=== PATIENT | male | born 1950 | race Caucasian/White ===

== ENCOUNTER 2018-03-22 21:05 | Inpatient (IN) ==
[2018-03-22] MEDS ORDERED: 0.9 % Sodium Chloride 1,000 ML IVC ONE (21:35)
--- NOTE | 2018-03-22 21:47 | Emergency Department Note ---
Disposition Clinical Impression: Hyperglycemia Hypotension Qualifiers: Hypotension type: unspecified hypotension type Qualified Code(s): I95.9 - Hypotension, unspecified Disposition: Admitted As Inpatient Condition: Fair Forms: ED Satisfaction Letter, Work/School Release Time of Disposition: 00:34 General Adult HPI - General Chief complaint: ED General Medical Stated complaint: "thinks his Bp is low" Time Seen by Provider: 03/22/18 21:28 Source: patient Mode of arrival: ambulatory Limitations: no limitations Nursing Notes Reviewed: Yes Vital Signs Reviewed: Yes - History of Present Illness HPI Narrative: 67-year-old male presented to the emergency department for possible low blood pressure. Patient is seen at the [facility]. He is on medications for diabetes as well as high blood pressure his blood pressure medications include lisinopril and amlodipine. Patient states proximally 2 weeks ago they increase his amlodipine from 5 mg to 10 mg. He does this daily. Said since then he brigido little more dizzy and no said blood pressures have been lower than normal. [facility]. He said he has had a few that were below 100 in the systolic range over the past week or so. He is worried that his medications are causing him to go to low. He has not gone to the [facility] to get this reevaluated yet. He is not having any chest pain any headaches no blurry vision he is not dizzy when he sitting. He is not having shortness of breath. Patient has no other complaints including fevers, chills, chest pain, shortness of breath, headache, blurry vision, neck pain, back pain, pain with urination, changes in bowel movements, pain or to 90 arms or legs or generalized weakness. Pain Scale: 0 - Related Data Home Medications Medication Instructions Recorded Confirmed Aspirin Enteric Coated [Aspirin EC] 81 mg PO DAILY #0 04/24/15 01/03/16 Cetirizine HCl 10 mg PO DAILY #0 04/25/15 01/03/16 Fluticasone Propionate Nasal 1 spr NS DAILY PRN #0 04/25/15 01/03/16 [Flonase] Lisinopril [Zestril] 40 mg PO DAILY #0 04/25/15 01/03/16 Pantoprazole Sodium [Protonix] 40 mg PO DAILY #0 11/03/15 07/13/16 Simvastatin [Zocor] 60 mg PO HS #0 04/25/15 01/03/16 Guaifenesin [Mucinex] 1,200 mg PO Q12H 01/03/16 01/03/16 Previous Rx's Medication Instructions Recorded Amlodipine [Norvasc] 2.5 mg PO DAILY #30 tablet 04/26/15 Allergies Allergy/AdvReac Type Severity Reaction Status Date / Time No Known Allergies Allergy Verified 01/03/16 10:30 All systems ED: reviewed and negative except as stated. Review of Systems: As Per HPI Past Medical History - Past Medical History Attestation: Yes The following information was validated with the patient. Source: patient Medical history: Reports: cancer, COPD, diabetes, hyperlipidemia, hypertension Surgical history: Reports: other Psychiatric history: Reports: no psych history - Social History Smoking Status: Current every day smoker Smokeless Tobacco Status: No Alcohol use: Reports: none Drug use: Reports: none Physical Exam - General Limitations: no limitations General appearance: alert, in no apparent distress - Head Head exam: atraumatic, normocephalic, normal inspection - Eye Eye exam: Present: normal appearance, PERRL, EOMI - ENT ENT exam: normal exam, normal oropharynx, mucous membranes moist - Neck Neck exam: Present: normal inspection, full ROM, trachea midline - Chest Chest inspection: Present: normal inspection, symmetric chest wall rise - Respiratory Respiratory exam: Present: normal lung sounds bilaterally - Cardiovascular Cardiovascular exam: Present: regular rate, normal rhythm, normal heart sounds - Abdominal Exam Abdominal exam: Present: soft, Non-Tender. Absent: tenderness, distention, guarding, rebound, rigidity - Extremities Exam Extremities exam: Present: normal inspection, full ROM. Absent: tenderness, pedal edema - Back Exam Back exam: Present: normal inspection, full ROM. Absent: tenderness, CVA tenderness (R), CVA tenderness (L) - Neurological Exam Neurological exam: Present: alert, oriented X3 - Skin Skin exam: Present: warm, dry, intact, normal color Course Course Narrative: We will do an EKG as well as basic labs including CBC and BMP will place an IV and give IV fluids. If patient's blood pressure does respond well we will discharge patient home and [facility]. Vital Signs Temperature 98.0 F 03/22/18 21:10 Pulse Rate 95 03/22/18 21:10 Respiratory Rate 18 03/22/18 21:10 Blood Pressure 106/64 03/22/18 21:10 O2 Sat by Pulse Oximetry 96 03/22/18 21:10 Temperature 98.0 F 03/22/18 21:10 Pulse Rate 83 03/22/18 23:33 Respiratory Rate 16 03/22/18 23:33 Blood Pressure 106/63 03/22/18 23:33 O2 Sat by Pulse Oximetry 96 03/22/18 23:33 Oxygen Delivery Oxygen Delivery Room Air Medical Decision Making - MDM Narrative Medical decision making narrative: 67-year-old male seen here for low blood pressure originally we are just going to give IV fluids and do a BMP and CBC. After getting the BMP patient's glucose was 888. He did have a sodium of 119 with a correction with a glucose his sodium was 131. Patient did not have an anion gap. VBG showed no acidosis patient had no beta hydroxybutyrate. We did give 10 units of insulin. His repeat blood glucose was 575. I then spoke with the hospitalist Dr. Whatley who agreed to admit the patient. He asked that I give another 10 units of insulin also give another IV IV bag bolus of fluids. Patient is stable at this time. He has no complaints at this time. Patient was not in DKA. This could be due to patient's high blood sugar causing his decrease in blood pressure but also could be due to the increase of amlodipine from 5 mg to 10 mg's. Did recommend he follow up with his primary care physician about better controlling his blood pressure. Patient is going to be admitted in stable condition. - Lab Data Result diagrams: 03/22/18 21:51 03/22/18 21:51 Lab Results 03/22/18 03/22/18 03/22/18 Range/Units 21:51 21:51 23:20 WBC 7.3 (4.3-11.1) K/mcL RBC 4.99 (4.19-5.50) M/mcL Hgb 15.4 (12.9-16.9) g/dL Hct 46.3 (37.5-50.1) % MCV 92.8 (83.0-100.0) fL MCH 30.9 (28.0-33.3) pg MCHC 33.3 (31.6-35.5) g/dL RDW 12.9 (11.5-14.5) % Plt Count 70 L (140-400) K/mcL MPV 11.7 (9.4-12.4) fL Immature Gran % 0.4 (0-4) % Seg Neutrophils % 69.4 % Lymphocytes % 21.5 % Monocytes % 7.3 % Eosinophils % 1.1 % Basophils % 0.3 % Neutrophils # 5.1 (1.6-8.9) K/mcL Lymphocytes # 1.6 (0.6-4.6) K/mcL Monocytes # 0.5 (0.0-1.3) K/mcL Eosinophils # 0.1 (0.0-0.6) K/mcL Basophils # 0.0 (0.0-0.2) K/mcL Immature Plt Fraction 9.0 H (1.1-6.1) % VBG pH (7.32-7.42) pH Units VBG pCO2 (41-51) mmHg VBG pO2 (25-50) mmHg VBG HCO3 (21-27) mEq/L Sodium 119 L* (136-145) mEq/L Potassium 5.2 H (3.5-5.1) mEq/L Chloride 90 L (98-107) mEq/L Carbon Dioxide 21 L (23-29) mEq/L BUN 36 H (8-23) mg/dL Creatinine 2.06 H (0.70-1.30) mg/dL Est GFR ( Amer) 39 L (> 60) Est GFR (Non-Af Amer) 32 L (> 60) BUN/Creatinine Ratio 17 (6-26) Glucose 883 H* (70-105) mg/dL Calculated Osmolality 300 (280-300) Calcium 9.0 (8.6-10.3) mg/dL Beta-Hydroxybutyric Acd 0.24 (0.02-0.27) mmol/L 03/22/18 Range/Units 23:35 WBC (4.3-11.1) K/mcL RBC (4.19-5.50) M/mcL Hgb (12.9-16.9) g/dL Hct (37.5-50.1) % MCV (83.0-100.0) fL MCH (28.0-33.3) pg MCHC (31.6-35.5) g/dL RDW (11.5-14.5) % Plt Count (140-400) K/mcL MPV (9.4-12.4) fL Immature Gran % (0-4) % Seg Neutrophils % % Lymphocytes % % Monocytes % % Eosinophils % % Basophils % % Neutrophils # (1.6-8.9) K/mcL Lymphocytes # (0.6-4.6) K/mcL Monocytes # (0.0-1.3) K/mcL Eosinophils # (0.0-0.6) K/mcL Basophils # (0.0-0.2) K/mcL Immature Plt Fraction (1.1-6.1) % VBG pH 7.37 (7.32-7.42) pH Units VBG pCO2 37 L (41-51) mmHg VBG pO2 135 H (25-50) mmHg VBG HCO3 21 (21-27) mEq/L Sodium (136-145) mEq/L Potassium (3.5-5.1) mEq/L Chloride (98-107) mEq/L Carbon Dioxide (23-29) mEq/L BUN (8-23) mg/dL Creatinine (0.70-1.30) mg/dL Est GFR ( Amer) (> 60) Est GFR (Non-Af Amer) (> 60) BUN/Creatinine Ratio (6-26) Glucose (70-105) mg/dL Calculated Osmolality (280-300) Calcium (8.6-10.3) mg/dL Beta-Hydroxybutyric Acd (0.02-0.27) mmol/L
[2018-03-22 22:10] LABS: Red Cell Distribution Width 12.9 % (11.5-14.5)
[2018-03-22 22:11] LABS: Hematocrit 46.3 % (37.5-50.1); Hemoglobin 15.4 g/dL (12.9-16.9); Immature Granulocytes % 0.4 % (0-4); Lymphocytes % 21.5 %; Mean Corpuscular HGB Conc 33.3 g/dL (31.6-35.5); Mean Corpuscular Hemoglobin 30.9 pg (28.0-33.3); Mean Corpuscular Volume 92.8 fL (83.0-100.0); Mean Platelet Volume 11.7 fL (9.4-12.4); Red Blood Count 4.99 M/mcL (4.19-5.50); Segmented Neutrophils % 69.4 %
[2018-03-22 22:12] LABS: Basophils % 0.3 %; Eosinophils # 0.1 K/mcL (0.0-0.6); Eosinophils % 1.1 %; Lymphocytes # 1.6 K/mcL (0.6-4.6); Monocytes # 0.5 K/mcL (0.0-1.3); Monocytes % 7.3 %; Neutrophils # 5.1 K/mcL (1.6-8.9); Platelet Count 70 K/mcL (140-400)
[2018-03-22 22:45] LABS: Potassium 5.2 mEq/L (3.5-5.1)
[2018-03-22] MEDS: Insulin Human Regular 10 UNIT in 0.9 % Sodium Chloride 10 ML IV ONE (23:11)
[2018-03-22 23:38] LABS: VBG HCO3 21 mEq/L (21-27); VBG PCO2 37 mmHg (41-51); VBG PH 7.37 pH Units (7.32-7.42); VBG PO2 135 mmHg (25-50)
[2018-03-23] MEDS ORDERED: Naloxone 0.4 MG/ML INJ IVP PRN (00:04)
[2018-03-23] MEDS ORDERED: Dextrose Gel 15 GM/37.5 ML TUBE PO PRN ×2 (00:07)
[2018-03-23] MEDS ORDERED: *HR* Dextrose 50 % in Water (Syg) 50 ML SYRINGE IVP PRN (00:07)
[2018-03-23] MEDS ORDERED: D5% in Water 1,000 ML IVC PRN (00:07)
[2018-03-23] MEDS ORDERED: Insulin Human Regular 10 UNIT in 0.9 % Sodium Chloride 10 ML IV ONE ×2 (00:08→00:29)
[2018-03-23] MEDS ORDERED: Insulin DETEMIR 100 UNIT/ML X5UNITS SQ ONE (00:08)
--- NOTE | 2018-03-23 00:16 | Internal Med History&Physical ---
<Jerry Haile - Last Filed: 03/23/18 01:13> Date of Encounter: 03/23/18 Time of Encounter: 23:40 Internal Medicine - H&P: HPI Chief complaint: Low BP Admitted From: Emergency Dept Plans for Post Hospital Care: Home History of present illness: Mr. Campbell is a 67 year old male with history of cancer, COPD, diabetes, hyperlipidemia, hypertension who presented to the ED with concern for low blood pressure. The patient apparently has been experiencing high blood pressure for the past 2 weeks for which she has been calling the [facility] to report about, however today he reported that his blood pressure was low and was told to come to the emergency room. He notes that in this time, he has been having some dizziness and he has been unstable on his feet. He says that he has been having frequent falls over the past 2 weeks as well. Additionally, he says that he has been having disorientation and some confusion. Upon questioning he notes that he has had some chills but no fevers and he has not had any sweats. He does say that he is been extremely thirsty over the past couple of weeks and that his thirst is unquenchable. He also says that he has had excessive urination and some blurred vision as well. Additionally, he does complain of nausea with some vomiting, as well as some diarrhea. He denies abdominal pain. When asked what his blood pressure today was which concerned him, he says he was unable to remember what the numbers were. Of note, the patient mentions that his amlodipine was increased from 5 mg to 10 mg proximally 2 months ago, however he has not noticed any significant changes in his symptoms and that time until 2 weeks ago. The patient does admit to a history of diabetes mellitus which was diagnosed a proximally 2 years ago, however he does not keep track of his blood glucose. He otherwise has no acute complaints at this time. The patient does state that he lives at home with his and his children. 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 Denies drug use. He is a retired . Past Med Surg Social Fam HX - Past Medical History Medical history: cancer, COPD, diabetes, hyperlipidemia, hypertension Additional medical history: skin cancer Psychiatric history: no psych history - Past Surgical History Surgical History: other Additional surgical history: foot surgery.nose surgery - Social History Smoking Status: Current every day smoker Smokeless Tobacco Status: No Alcohol use: none Drug use: none - Family History Mother Adopted: No Family Member Ethnicity: Non- Living Status: Still Living Hx Family Cardiac Disorders: No Hx Family Respiratory Disorders: No Hx Family Cancer: No Hx Family GI Disorders: No Hx Family Endocrine Disorder: Yes Hx Family Neuromuscular Disorders: No Hx Family Neurologic Disorders: No Hx Family HEENT Disorders: No Hx Family Autoimmune Disorders: No Father Hx Family Cardiac Disorders: Yes (s/p SD) Internal Medicine - H&P: Meds Aspirin Enteric Coated [Aspirin EC] 81 mg PO DAILY #0 04/24/15 [History] Cetirizine HCl 10 mg PO DAILY #0 04/25/15 [History] Fluticasone Propionate Nasal [Flonase] 1 spr NS DAILY PRN #0 04/25/15 [History] Lisinopril [Zestril] 40 mg PO DAILY #0 04/25/15 [History] Pantoprazole Sodium [Protonix] 40 mg PO DAILY #0 04/25/15 [History] Simvastatin [Zocor] 60 mg PO HS #0 04/25/15 [History] Amlodipine [Norvasc] 2.5 mg PO DAILY #30 tablet 04/26/15 [Rx] Guaifenesin [Mucinex] 1,200 mg PO Q12H 01/03/16 [History] 3 Allergy/AdvReac Type Severity Reaction Status Date / Time No Known Allergies Allergy Verified 01/03/16 10:30 All Systems PM: A 10-system review of systems was performed and is negative for pertinent findings except as documented above in the HPI. Review of systems: Constitutional: Denies fevers, weight loss, generalized fatigue. Does admit to some chills Head/Neck: Denies WIGGINS, neck stiffness EENT: Admits to some visual blurriness. Denies rhinorrhea, congestion, sore throat CVS: Denies chest pain, palpitations, ROTHMAN, orthopnea, edema, PND Pulm: Admits to cough with sputum production for one year. Denies SOB, hemoptysis, wheezing Endocrine: Patient admits to polydipsia and polyuria GI: Admits to nausea and some vomiting. Denies abdominal pain, constipation, melena, hematemasis : Admits to polyuria. Denies dysuria, urgency, hematuria Heme: Denies ease of bleeding or bruising MSK: Denies joint pain, limited ROM Skin: Denies rashes, ulcers, color changes Neuro: Denies WIGGINS, paresthesias, focal deficits - Constitutional Vitals: Temp Pulse Resp BP Pulse Ox 98.0 F 83 16 106/63 96 03/22/18 21:10 03/22/18 23:33 03/22/18 23:33 03/22/18 23:33 03/22/18 23:33 Exam: Gen: Vitals noted. No acute distress. Patient appears disheveled, has foul odor of urine and does not appear to have showered in several days HEENT: Normocephalic, atraumatic. Mucous membranes appear moist Neck: Supple. No adenopathy. Cardiac: RRR, no murmur, +S1/S2 Pulmonary: CTA bilaterally, no wheezes, rales or rhonchi, equal chest expansion Abdomen: soft, nontender, no guarding. There is minimal distention Back: Nontender throughout. Extremities: no BLE edema, nontender calf, no cyanosis or clubbing. Feet do not appear to have any breaks in the skin although they are extremely unclean. Neuro: moves all extremities, no focal deficits. A&Ox3. Akathasia is present. Hyperreflexic in lower extremities Psych: Patient is anxious appearing Internal Med - H&P Results - Labs CBC & Chem 7: 03/22/18 21:51 03/23/18 00:40 Labs: Short CBC 03/22/18 Range/Units 21:51 WBC 7.3 (4.3-11.1) K/mcL Hgb 15.4 (12.9-16.9) g/dL Hct 46.3 (37.5-50.1) % Plt Count 70 L (140-400) K/mcL Neutrophils # 5.1 (1.6-8.9) K/mcL BMP 03/22/18 21:51 Sodium 119 L* Potassium 5.2 H Chloride 90 L Carbon Dioxide 21 L BUN 36 H Creatinine 2.06 H Glucose 883 H* Calcium 9.0 - ABG Interpretation ABG results: 03/22/18 23:35 VBG pH 7.37 VBG pCO2 37 L VBG pO2 135 H VBG HCO3 21 - Assessment and plan (1) Type 2 diabetes mellitus with hyperosmolarity without nonketotic hyperglycemic-hyperosmolar coma Current Visit: Yes Status: Resolved Assessment and plan: Hyperosmolar hyperglycemic state, blood glucose 883 on presentation Patient states that he does not keep track of his blood glucose, although he does say he takes his medication His BMP demonstrates no anion gap at this time, VBG is not significant for Acidosis, there are no serum ketones Sodium 118, Potassium 5.2, Glucose 885. HR 83, BP 106/63 after fluids Symptomatic at this time, patient admits to polyuria and polydipsia, but does not appear profoundly volume depleted at this time Received 10U IV insulin in the ED with 1L fluid which dropped glucose to 575 Plan -Patient responded well to fluids and 10U IV insulin. Although he appears to be in HHS, he should improve without initiation of insulin drip at this time as he is not profoundly volume depleted. -Will give 10U IV insulin, 20U Levemir, and aggressive IV fluid replacement -Repeat BMP q4h initially q1h accucheck -Sliding scale insulin (2) Hypertension Current Visit: No Status: Acute Assessment and plan: Patient states that he was hypotensive today On arrival, BP 106/64. Does not remember home BP readings He does take multiple antihypertensive meds at this time I suspect that the hypotension is a combination of hypovolemia and supratherapeutic medication Will give the patient aggressive volume resuscitation and hold BP meds Qualifiers: Hypertension type: essential hypertension Qualified Code(s): I10 - Essential (primary) hypertension (3) KRYSTYNA (acute kidney injury) Current Visit: Yes Status: Acute Assessment and plan: Acute on chronic kidney disease stage III Serum creatinine 2.06 on presentation, it assessment a GFR 32 Likely secondary to hypovolemia, prerenal state in setting of HHS We will continue aggressive volume resuscitation at this time Avoid nephrotoxic agents Repeat BMP in a.m. (4) Frequent falls Current Visit: Yes Status: Acute Assessment and plan: Likely secondary to hypovolemia/hypotension and hyperglycemia Fall precautions (5) COPD (chronic obstructive pulmonary disease) Current Visit: Yes Status: Acute Assessment and plan: COPD per patient history Not in acute exacerbation Continue home meds Qualifiers: COPD type: unspecified COPD Qualified Code(s): J44.9 - Chronic obstructive pulmonary disease, unspecified (6) Tobacco use Current Visit: No Status: Acute Assessment and plan: Nicotine patches when necessary (7) DVT prophylaxis Current Visit: Yes Status: Acute Assessment and plan: Patient is thrombocytopenic, so I will avoid heparin We will do SCDs - Time Spent With Patient Total time spent is greater than 50% in coordination of care (as documented) at patient's floor/unit and/or counseling patient: <PhyliciaKayley - Last Filed: 03/23/18 02:50> Date of Encounter: 03/23/18 Internal Medicine - H&P: HPI History of present illness: Mr. Campbell is a 67 year old male All Systems PM: A 10-system review of systems was performed and is negative for pertinent findings except as documented above in the HPI. - Constitutional Vitals: Temp Pulse Resp BP Pulse Ox 98.2 F 84 15 90/56 95 03/23/18 01:36 03/23/18 01:36 03/23/18 01:36 03/23/18 01:36 03/23/18 01:36 Internal Med - H&P Results - Labs CBC & Chem 7: 03/22/18 21:51 03/23/18 00:40 - Assessment and plan (1) Hypertension Current Visit: No Status: Acute Qualifiers: Hypertension type: essential hypertension Qualified Code(s): I10 - Essential (primary) hypertension (2) Tobacco use Current Visit: No Status: Acute (3) Type 2 diabetes mellitus with hyperosmolarity without nonketotic hyperglycemic-hyperosmolar coma Current Visit: Yes Status: Resolved (4) KRYSTYNA (acute kidney injury) Current Visit: Yes Status: Acute (5) Frequent falls Current Visit: Yes Status: Acute (6) DVT prophylaxis Current Visit: Yes Status: Acute (7) COPD (chronic obstructive pulmonary disease) Current Visit: Yes Status: Acute Qualifiers: COPD type: unspecified COPD Qualified Code(s): J44.9 - Chronic obstructive pulmonary disease, unspecified - Time Spent With Patient Total time spent is greater than 50% in coordination of care (as documented) at patient's floor/unit and/or counseling patient: - Attending Attestation Mr. Harvey Campbell is a 67-year-old male with a history of COPD, hypertension and type 2 diabetes who presents stating that he felt his blood pressure was low as he had been checking it serially ever since he had doubling of his dosage and was incidentally found to have a glycemic value of close to 900 with concurrent pseudohyponatremia, acute kidney injury and no anion gap or ketone formations. We immediately started him on aggressive fluid resuscitation and received regular insulin push which brought his glucose level to 500 and subsequently to 400 therefore not warranting placement on insulin drip. Clinically he feels fine other than complaints of chronic lower extremity neuropathy and cramping of more recent. Physical exam remarkable for obese male who appears unkempt. No wheezing rales or rhonchi. Abdomen distended but soft and nontender to palpation. Normal S1/ S2 with no murmur, rubs or gallop. We will admit for hyperglycemic hyperosmolar state with acute kidney injury and hydrated electrolytic imbalances. Replete potassium prior to insulin administration. Ongoing IV NS. Goal glucose of 250 mg/dL or below. Every hour fingersticks until this is achieved. Start long-acting basal insulin. Hold antihypertensives in the setting of low BP. Thrombocytopenia is noted with no overt cause identified; will repeat CBC upon resolution of his acute state. Should resume diabetic diet.
[2018-03-23] MEDS ORDERED: 0.9 % Sodium Chloride 1,000 ML IVC ONE (00:29)
--- NOTE | 2018-03-23 00:49 | Emergency Department Note ---
Disposition Clinical Impression: Hyperglycemia Hypotension Qualifiers: Hypotension type: unspecified hypotension type Qualified Code(s): I95.9 - Hypotension, unspecified Disposition: Admitted As Inpatient Condition: Fair General Adult HPI - General Chief complaint: ED General Medical Stated complaint: "thinks his Bp is low" Time Seen by Provider: 03/22/18 21:28 Source: patient Mode of arrival: ambulatory Limitations: no limitations Nursing Notes Reviewed: Yes Vital Signs Reviewed: Yes - History of Present Illness Pain Scale: 0 - Related Data Home Medications Medication Instructions Recorded Confirmed Aspirin Enteric Coated [Aspirin EC] 81 mg PO DAILY #0 04/24/15 01/03/16 Cetirizine HCl 10 mg PO DAILY #0 04/25/15 01/03/16 Fluticasone Propionate Nasal 1 spr NS DAILY PRN #0 04/25/15 01/03/16 [Flonase] Lisinopril [Zestril] 40 mg PO DAILY #0 04/25/15 01/03/16 Pantoprazole Sodium [Protonix] 40 mg PO DAILY #0 04/25/15 01/03/16 Simvastatin [Zocor] 60 mg PO HS #0 04/25/15 01/03/16 Guaifenesin [Mucinex] 1,200 mg PO Q12H 01/03/16 01/03/16 Previous Rx's Medication Instructions Recorded Amlodipine [Norvasc] 2.5 mg PO DAILY #30 tablet 04/26/15 Allergies Allergy/AdvReac Type Severity Reaction Status Date / Time No Known Allergies Allergy Verified 01/03/16 10:30 Past Medical History - Past Medical History Medical history: Reports: cancer, COPD, diabetes, hyperlipidemia, hypertension Surgical history: Reports: other Psychiatric history: Reports: no psych history - Social History Smoking Status: Current every day smoker Smokeless Tobacco Status: No Alcohol use: Reports: none Drug use: Reports: none Physical Exam - General Limitations: no limitations General appearance: alert, in no apparent distress Course Vital Signs Temperature 98.0 F 03/22/18 21:10 Pulse Rate 95 03/22/18 21:10 Respiratory Rate 18 03/22/18 21:10 Blood Pressure 106/64 03/22/18 21:10 O2 Sat by Pulse Oximetry 96 03/22/18 21:10 Temperature 98.0 F 03/22/18 21:10 Pulse Rate 83 03/22/18 23:33 Respiratory Rate 16 03/22/18 23:33 Blood Pressure 106/63 03/22/18 23:33 O2 Sat by Pulse Oximetry 96 03/22/18 23:33 Oxygen Delivery Oxygen Delivery Room Air Medical Decision Making - Medical Records Medical records reviewed: Yes I reviewed the patient's medical records. - Lab Data Lab results reviewed: Yes I reviewed the patient's lab results. Result diagrams: 03/22/18 21:51 03/22/18 21:51 Lab Results 03/22/18 03/22/18 03/22/18 Range/Units 21:51 21:51 23:20 WBC 7.3 (4.3-11.1) K/mcL RBC 4.99 (4.19-5.50) M/mcL Hgb 15.4 (12.9-16.9) g/dL Hct 46.3 (37.5-50.1) % MCV 92.8 (83.0-100.0) fL MCH 30.9 (28.0-33.3) pg MCHC 33.3 (31.6-35.5) g/dL RDW 12.9 (11.5-14.5) % Plt Count 70 L (140-400) K/mcL MPV 11.7 (9.4-12.4) fL Immature Gran % 0.4 (0-4) % Seg Neutrophils % 69.4 % Lymphocytes % 21.5 % Monocytes % 7.3 % Eosinophils % 1.1 % Basophils % 0.3 % Neutrophils # 5.1 (1.6-8.9) K/mcL Lymphocytes # 1.6 (0.6-4.6) K/mcL Monocytes # 0.5 (0.0-1.3) K/mcL Eosinophils # 0.1 (0.0-0.6) K/mcL Basophils # 0.0 (0.0-0.2) K/mcL Immature Plt Fraction 9.0 H (1.1-6.1) % VBG pH (7.32-7.42) pH Units VBG pCO2 (41-51) mmHg VBG pO2 (25-50) mmHg VBG HCO3 (21-27) mEq/L Sodium 119 L* (136-145) mEq/L Potassium 5.2 H (3.5-5.1) mEq/L Chloride 90 L (98-107) mEq/L Carbon Dioxide 21 L (23-29) mEq/L BUN 36 H (8-23) mg/dL Creatinine 2.06 H (0.70-1.30) mg/dL Est GFR ( Amer) 39 L (> 60) Est GFR (Non-Af Amer) 32 L (> 60) BUN/Creatinine Ratio 17 (6-26) Glucose 883 H* (70-105) mg/dL Calculated Osmolality 300 (280-300) Calcium 9.0 (8.6-10.3) mg/dL Beta-Hydroxybutyric Acd 0.24 (0.02-0.27) mmol/L 03/22/18 Range/Units 23:35 WBC (4.3-11.1) K/mcL RBC (4.19-5.50) M/mcL Hgb (12.9-16.9) g/dL Hct (37.5-50.1) % MCV (83.0-100.0) fL MCH (28.0-33.3) pg MCHC (31.6-35.5) g/dL RDW (11.5-14.5) % Plt Count (140-400) K/mcL MPV (9.4-12.4) fL Immature Gran % (0-4) % Seg Neutrophils % % Lymphocytes % % Monocytes % % Eosinophils % % Basophils % % Neutrophils # (1.6-8.9) K/mcL Lymphocytes # (0.6-4.6) K/mcL Monocytes # (0.0-1.3) K/mcL Eosinophils # (0.0-0.6) K/mcL Basophils # (0.0-0.2) K/mcL Immature Plt Fraction (1.1-6.1) % VBG pH 7.37 (7.32-7.42) pH Units VBG pCO2 37 L (41-51) mmHg VBG pO2 135 H (25-50) mmHg VBG HCO3 21 (21-27) mEq/L Sodium (136-145) mEq/L Potassium (3.5-5.1) mEq/L Chloride (98-107) mEq/L Carbon Dioxide (23-29) mEq/L BUN (8-23) mg/dL Creatinine (0.70-1.30) mg/dL Est GFR ( Amer) (> 60) Est GFR (Non-Af Amer) (> 60) BUN/Creatinine Ratio (6-26) Glucose (70-105) mg/dL Calculated Osmolality (280-300) Calcium (8.6-10.3) mg/dL Beta-Hydroxybutyric Acd (0.02-0.27) mmol/L - EKG Data EKG #1 EKG attestation: Yes I reviewed and interpreted this EKG. EKG results narrative: EKG shows a normal sinus rhythm with ventricular rate of 85. No acute ST segment elevation or depression. No voltage in precordial leads. There is poor R wave progression suggesting a possible anterior ME of undetermined age. Critical Care Time Critical Care Time: Yes Total Critical Care Time: 40 Attestation: Critical care performed: Time is exclusive of separately billable procedures. Time includes: direct patient care, patient reassessment, coordination of patient care, interpretation of data (laboratory data, radiology data, and respiratory data), review of patient's medical records, medical consultation and documentation of patient care. Procedures included in critical care time: Procedures excluded from critical care time: Attestation Statement - Attestation Attestation: I, Babatunde Michelle MD, personally evaluated this patient and discussed their management with the resident physician. I reviewed the resident's note and agree with the documented findings, medical decision making, and plan of care. 67-year-old male presents to the emergency department with a complaint of his blood pressure running low for the past 2 weeks. He is unsure of the readings but thinks that sometimes the systolic is less than 100 and the diastolic is in the 60s. Patient does have a history of hypertension and is on lisinopril and amlodipine. He did just recently have his amlodipine dosage increased from 5 mg 2 mg a few months ago. He denies any chest pain or shortness of breath. He has been having some falls due to weakness when he gets up and walks around. He denies any injury from the falls. No syncope or loss of consciousness. He has not been ill otherwise. No fever. No vomiting or diarrhea. Patient is a heavy smoker and smokes 2 and half packs per day. He denies any history of COPD or breathing problems. On examination patient is a well-developed obese elderly male in no acute distress. He is alert and oriented 3. There is no cyanosis or diaphoresis. Breath sounds are equal bilaterally with a few faint scattered expiratory wheezes. No rales. Heart regular rate and rhythm. Abdomen soft and nontender with normal bowel sounds. One plus pedal edema bilaterally. Labs reviewed. Sodium 119. Glucose 883. Ketones negative. PH normal. No acute changes on EKG. Patient did receive IV fluids and regular insulin 10 units IV with improvement in his glucose down to the 500s. Patient was not hypotensive here in the emergency department. The hospitalist, Dr. Whatley, was consulted and accepted admission of the patient.
[2018-03-23 01:11] LABS: Potassium 4.1 mEq/L (3.5-5.1)
[2018-03-23] MEDS: Insulin Human Regular 10 UNIT in 0.9 % Sodium Chloride 10 ML IV ONE (01:51)
[2018-03-23] MEDS ORDERED: Fluticasone Propionate Nasal 50 MCG/SPRAY BOTTLE NS PRN (02:20)
[2018-03-23] MEDS: 0.9 % Sodium Chloride 1,000 ML IVC SCH ×3 (03:15→05:29)
[2018-03-23 03:56] LABS: Bilirubin,Urine Negative (Negative); Blood,Urine Negative (Negative); Clarity,Urine Clear (Clear); Color,Urine Yellow (Yellow); Glucose,Urine (UA) >=1000 mg/dL (Normal); Ketones,Urine Negative (Negative); Leukocyte Esterase,Urine Negative (Negative); Nitrite,Urine Negative (Negative); PH,Urine 5.5 pH Units (5.0-8.0); Protein,Urine Trace mg/dL (Neg-Trace); Specific Gravity,Urine > 1.030 (1.010-1.025); Urobilinogen,Urine Normal (Normal)
[2018-03-23 03:58] LABS: Bacteria,Urine None Seen per hpf (None-Few); Hyaline Casts,Urine None Seen per lpf (None-Few); RBC,Urine 0-3 per hpf (0-3); Squamous Epithelial Cell,Urine Moderate per lpf (None-Few); WBC,Urine 0-3 per hpf (0-3)
[2018-03-23] MEDS ORDERED: Insulin LISPRO 300 UNITS/3 ML VIAL SQ ONE (04:46)
[2018-03-23 05:13] LABS: Basophils % 0.5 %; Eosinophils # 0.2 K/mcL (0.0-0.6); Hemoglobin 13.4 g/dL (12.9-16.9); Immature Granulocytes % 0.6 % (0-4); Immature Platelets 8.3 % (1.1-6.1); Lymphocytes # 2.6 K/mcL (0.6-4.6); Lymphocytes % 32.6 %; Mean Corpuscular HGB Conc 33.5 g/dL (31.6-35.5); Mean Corpuscular Hemoglobin 30.7 pg (28.0-33.3); Mean Corpuscular Volume 91.7 fL (83.0-100.0); Mean Platelet Volume 10.8 fL (9.4-12.4); Monocytes # 0.7 K/mcL (0.0-1.3); Monocytes % 9.1 %; Neutrophils # 4.4 K/mcL (1.6-8.9); Red Blood Count 4.36 M/mcL (4.19-5.50); Red Cell Distribution Width 12.6 % (11.5-14.5); Segmented Neutrophils % 55.2 %
[2018-03-23 05:16] LABS: Platelet Count 63 K/mcL (140-400)
[2018-03-23 05:28] LABS: Albumin 3.2 g/dL (3.5-5.7); Albumin/Globulin Ratio 1.5 (1.1-2.2); Bilirubin,Direct 0.2 mg/dL (0.0-0.2); Bilirubin,Indirect 0.5 mg/dL (0.0-1.2); Bilirubin,Total 0.7 mg/dL (0.3-1.0); Globulin 2.2 g/dL (2.4-3.5); Total Protein 5.4 g/dL (6.4-8.9)
[2018-03-23] MEDS ORDERED: Insulin LISPRO 300 UNITS/3 ML VIAL SQ SCH ×2 (06:00→21:00)
[2018-03-23] MEDS ORDERED: *HR* Heparin 5,000 UNIT/ML VIAL SQ SCH (06:00)
[2018-03-23 06:02] LABS: Calcium 8.3 mg/dL (8.6-10.3); Potassium 3.8 mEq/L (3.5-5.1)
[2018-03-23] MEDS: Nicotine 14 MG PATCH.TD24 TD SCH (08:07)
[2018-03-23] MEDS: Aspirin Enteric Coated 81 MG Tablet PO SCH (08:08)
[2018-03-23] MEDS: Loratadine 10 MG TABLET PO SCH (08:09)
[2018-03-23] MEDS: Insulin LISPRO 300 UNITS/3 ML VIAL SQ SCH ×4 (08:16→22:26)
--- NOTE | 2018-03-23 08:49 | Internal Med Progress Note ---
<Jerry Rothman - Last Filed: 03/23/18 11:13> Hospitalist Progress Note - Encounter Date of Encounter: 03/23/18 Time of Encounter: 08:47 - Subjective Interval History: Pt seen and examined. Resting comfortably, NAD. States that his symptoms have improved since yesterday. Realizes that he need to take better control of his health, especially his diabetes. ROS: denies acute changes in vision or hearing , headaches, cp, sob, n/v/d. - Exam Vitals: Temp Pulse Resp BP Pulse Ox 98.2 F 78 18 102/65 94 03/23/18 06:55 03/23/18 06:55 03/23/18 06:55 03/23/18 06:55 03/23/18 08:13 Exam: Gen: WNWD male, NAD HEENT: Mucous membranes moist, no head or neck lymphadenopahty Neck: Supple Cardiac: RRR, no murmur, +S1/S2 Pulmonary: CTA bilaterally, no wheezes, rales or rhonchi Abdomen: soft, nontender, no guarding; normoactive bowel sounds ascultated in all 4 quadrants Extremities: no LE edema, no cyanosis or clubbing Neuro: moves all extremities, complains of decreased sensation to palpation of b/l LE Psych: normal judgment; pt appears calm - Assessment and Plan (1) Type 2 diabetes mellitus with hyperosmolarity, uncontrolled Current Visit: Yes Status: Acute Assessment and Plan: Questionably controlled diabetes. Pt does not monitor BG at home but does take his metformin regularly pt presented with BG >850 Not likely HHS due to calculated serum osmolarity WNL on admission Not likely DKA due to normal anion gap on admission Hgb A1C > 18 Treated with fluid resuscitation, 10U IV insulin, 20U Levemir on admission Continued tx with low dose SSI diabetic diet Will need tight glycemic control and diabetes education upon d/c (2) Hypertension Current Visit: No Status: Acute Assessment and Plan: Hx of htn as per pt Currently taking multiple antihypertensive medications Pt monitoring home bp daily and [facility] to [facility] Pt unable to recall any recent BP readings Holding BP medications at this time Most recent pressure 102/62 [facility] (3) Frequent falls Current Visit: Yes Status: Acute Assessment and Plan: Pt admits to frequent, unprovoked falls at home possibly due to hypovolemia 2/2 increased BG or hypotension fall precautions while admitted (4) Tobacco use Current Visit: No Status: Acute Assessment and Plan: current 2.5 ppd smoker encouraged cessation nicotine patch while inpatient (5) KRYSTYNA (acute kidney injury) Current Visit: Yes Status: Acute Assessment and Plan: Pt baseline Cr appears to be around 1.3 Cr elevated >2 on admission, currently downtrending; now 1.47 likely due to volume depletion will treat with fluid resuscitation and continue to monitor (6) COPD (chronic obstructive pulmonary disease) Current Visit: Yes Status: Acute Assessment and Plan: Pt reported hx of COPD. Not currently in acute exacerbation will continue home medications (7) DVT prophylaxis Current Visit: Yes Status: Acute Assessment and Plan: pt thrombocytopenic No heparin at this time SCDs for dvt ppx - Time Spent with Patient Total time spent is greater than 50% in coordination of care (as documented) at patient's floor/unit and/or counseling patient: Internal Medicine: Result - Labs CBC & Chem 7: 03/23/18 04:43 03/23/18 04:43 Labs: Short CBC 03/23/18 Range/Units 04:43 WBC 8.0 (4.3-11.1) K/mcL Hgb 13.4 D (12.9-16.9) g/dL Hct 40.0 (37.5-50.1) % Plt Count 63 L (140-400) K/mcL Neutrophils # 4.4 (1.6-8.9) K/mcL BMP 03/23/18 04:43 Sodium 133 L Potassium 3.8 Chloride 107 Carbon Dioxide 20 L BUN 30 H Creatinine 1.47 H Glucose 283 H Calcium 8.3 L Liver Function 03/23/18 Range/Units 04:43 Total Bilirubin 0.7 (0.3-1.0) mg/dL Direct Bilirubin 0.2 (0.0-0.2) mg/dL AST 13 (13-39) Units/L ALT 17 (7-52) Units/L Alkaline Phosphatase 50 (34-104) Units/L Albumin 3.2 L (3.5-5.7) g/dL Urine 03/23/18 Range/Units 03:48 Urine Color Yellow (Yellow) Urine Clarity Clear (Clear) Urine pH 5.5 (5.0-8.0) pH Units Ur Specific [place] > 1.030 H (1.010-1.025) Urine Protein Trace (Neg-Trace) mg/dL Urine Glucose (UA) >=1000 H (Normal) mg/dL - VTE Documentation of Mechanical Device: Intermittent pneumatic compression device Consult Discharge Plan - Plan [facility]errals: [facility] [Primary Care Provider] - <Rina Cordova - Last Filed: 03/23/18 14:21> Hospitalist Progress Note - Encounter Date of Encounter: 03/23/18 - Exam Vitals: Temp Pulse Resp BP Pulse Ox 98.4 F 80 93 98/66 93 03/23/18 11:05 03/23/18 11:05 03/23/18 11:05 03/23/18 11:05 03/23/18 11:05 - Assessment and Plan (1) Hypertension Current Visit: No Status: Acute (2) Tobacco use Current Visit: No Status: Acute (3) Type 2 diabetes mellitus with hyperosmolarity without nonketotic hyperglycemic-hyperosmolar coma Current Visit: Yes Status: Resolved (4) KRYSTYNA (acute kidney injury) Current Visit: Yes Status: Acute (5) Frequent falls Current Visit: Yes Status: Acute (6) DVT prophylaxis Current Visit: Yes Status: Acute (7) COPD (chronic obstructive pulmonary disease) Current Visit: Yes Status: Acute - Time Spent with Patient Total time spent is greater than 50% in coordination of care (as documented) at patient's floor/unit and/or counseling patient: Internal Medicine: Result - Labs CBC & Chem 7: 03/23/18 04:43 03/23/18 04:43 Labs: Short CBC 03/23/18 Range/Units 04:43 WBC 8.0 (4.3-11.1) K/mcL Hgb 13.4 D (12.9-16.9) g/dL Hct 40.0 (37.5-50.1) % Plt Count 63 L (140-400) K/mcL Neutrophils # 4.4 (1.6-8.9) K/mcL BMP 03/23/18 04:43 Sodium 133 L Potassium 3.8 Chloride 107 Carbon Dioxide 20 L BUN 30 H Creatinine 1.47 H Glucose 283 H Calcium 8.3 L Liver Function 03/23/18 Range/Units 04:43 Total Bilirubin 0.7 (0.3-1.0) mg/dL Direct Bilirubin 0.2 (0.0-0.2) mg/dL AST 13 (13-39) Units/L ALT 17 (7-52) Units/L Alkaline Phosphatase 50 (34-104) Units/L Albumin 3.2 L (3.5-5.7) g/dL Urine 03/23/18 Range/Units 03:48 Urine Color Yellow (Yellow) Urine Clarity Clear (Clear) Urine pH 5.5 (5.0-8.0) pH Units Ur Specific [place] > 1.030 H (1.010-1.025) Urine Protein Trace (Neg-Trace) mg/dL Urine Glucose (UA) >=1000 H (Normal) mg/dL - Attending Attestation I have seen and examined this pt independently. I have discussed with resident physician Dr Hallman and medical student regarding the management plan. Agree with the documentation. <Jerry Rothman - Last Filed: 03/23/18 11:13> (2) Hypertension Qualifiers: Hypertension type: essential hypertension Qualified Code(s): I10 - Essential (primary) hypertension (6) COPD (chronic obstructive pulmonary disease) Qualifiers: COPD type: unspecified COPD Qualified Code(s): J44.9 - Chronic obstructive pulmonary disease, unspecified <Rina Cordova - Last Filed: 03/23/18 14:21> (1) Hypertension Qualifiers: Hypertension type: essential hypertension Qualified Code(s): I10 - Essential (primary) hypertension (7) COPD (chronic obstructive pulmonary disease) Qualifiers: COPD type: unspecified COPD Qualified Code(s): J44.9 - Chronic obstructive pulmonary disease, unspecified
[2018-03-23 10:32] LABS: Estimated Average Glucose 476 mg/dl; Hemoglobin A1C 18.2 %
[2018-03-23] MEDS ORDERED: 0.9 % Sodium Chloride 1,000 ML IVC SCH (11:30)
[2018-03-23] MEDS ORDERED: *HR* Metformin 500 MG TABLET PO SCH (17:00)
[2018-03-23] MEDS: Acetaminophen 325 MG TABLET PO PRN (22:24)
[2018-03-24 08:30] LABS: Magnesium 1.9 mg/dL (1.6-2.6); Phosphorous 2.1 mg/dL (2.7-4.5)
[2018-03-24 08:35] LABS: Red Cell Distribution Width 13.2 % (11.5-14.5)
[2018-03-24 08:49] LABS: Basophils % 0.6 %; Eosinophils # 0.2 K/mcL (0.0-0.6); Eosinophils % 2.8 %; Hematocrit 42.8 % (37.5-50.1); Hemoglobin 14.5 g/dL (12.9-16.9); Immature Granulocytes % 0.7 % (0-4); Immature Platelets 7.8 % (1.1-6.1); Lymphocytes # 2.4 K/mcL (0.6-4.6); Lymphocytes % 35.1 %; Mean Corpuscular HGB Conc 33.9 g/dL (31.6-35.5); Mean Corpuscular Hemoglobin 31.3 pg (28.0-33.3); Mean Corpuscular Volume 92.4 fL (83.0-100.0); Mean Platelet Volume 10.9 fL (9.4-12.4); Monocytes # 0.5 K/mcL (0.0-1.3); Monocytes % 7.4 %; Neutrophils # 3.6 K/mcL (1.6-8.9); Red Blood Count 4.63 M/mcL (4.19-5.50); Segmented Neutrophils % 53.4 %
[2018-03-24 08:51] LABS: Platelet Count 69 K/mcL (140-400)
[2018-03-24] MEDS: Nicotine 14 MG PATCH.TD24 TD SCH (08:57)
[2018-03-24] MEDS: Acetaminophen 325 MG TABLET PO PRN (09:05)
[2018-03-24] MEDS: Aspirin Enteric Coated 81 MG Tablet PO SCH (09:05)
[2018-03-24] MEDS: Loratadine 10 MG TABLET PO SCH (09:06)
[2018-03-24] MEDS: Insulin LISPRO 300 UNITS/3 ML VIAL SQ SCH ×4 (09:18→22:18)
[2018-03-24] MEDS ORDERED: Gabapentin 400 MG CAPSULE PO SCH (09:45)
[2018-03-24 10:28] LABS: BUN/Creatinine Ratio 15 (6-26); Blood Urea Nitrogen 16 mg/dL (8-23); Calcium 8.7 mg/dL (8.6-10.3); Carbon Dioxide 20 mEq/L (23-29); Chloride 107 mEq/L (98-107); Glucose 412 mg/dL (70-105); Osmolality,Calculated 295 (280-300); Potassium 4.1 mEq/L (3.5-5.1); Sodium 133 mEq/L (136-145); eGFR For Non-African Americans > 60 (> 60)
--- NOTE | 2018-03-24 11:57 | Internal Med Progress Note ---
<Dolores Hallman Kain - Last Filed: 03/24/18 15:57> Hospitalist Progress Note - Encounter Date of Encounter: 03/24/18 Time of Encounter: 09:32 - Subjective Interval History: Experiencing worsening "muscle spasms" during examination. Patient was found violently shaking both upper extremities complaining of muscle spasm, which lasted less than 1 minute. Patient was communicating throughout the episode. After "spasm" resolved, he had equal strength bilaterally in the upper extremities. Moderate weakness of the left lower extremity. Decreased sensation in the left upper thigh, otherwise sensation intact. Patient denied any chest pain, lightheadedness, dizziness, or worsening of shortness of breath. No urinary incontinence during the episode. - Exam Vitals: Temp Pulse Resp BP Pulse Ox 97.8 F 97 18 131/73 97 03/24/18 10:45 03/24/18 10:45 03/24/18 10:45 03/24/18 10:45 03/24/18 10:45 Exam: Gen: Obese male, moderate distress due to "muscle spasm", increased work or breathing upon resolution or the episode HEENT: Atraumatic, normocephalic Cardiac: RRR, no murmur, +S1/S2 Pulmonary: slight crackles bilaterally in the bases Abdomen: soft, nontender, no guarding Extremities: no LE edema, no cyanosis or clubbing Neuro: Equal strength bilaterally in the upper extremities. Decreased strength of the left lower extremity when compared to the right decreased sensation in the left upper thigh, otherwise sensation intact. No facial droop or slurring of speech. Psych: Anxious. Answers questions appropriately. - Assessment and Plan (1) Severe uncontrolled diabetes mellitus Current Visit: Yes Status: Chronic Assessment and Plan: Chronic, uncontrolled. Glu 883 on admission, now in mid 200s A1c 18.2 03/23 Non-compliant on Metformin 500 QD at home Started Metformin 500 BID with moderate dose SSI, will monitor insulin needs and reassess tomorrow Patient will require close follow up as an outpatient and will likely require insulin, however do not feel patient is safe to go home on insulin at this time Consulting nutrition for diabetic diet education Patient would likely benefit from outpatient diabetes education Recommend Endocrine follow up as an outpatient (2) Upper extremity myoclonus Current Visit: Yes Status: Acute Assessment and Plan: Patient reports chronic issues with "muscle spasms" at home. Increased in frequency and severity since admission. Isolated to bilateral upper extremities. Less likely electrolyte abnormalities as possible cause. - Na 133 - K 4.1 - Mg 1.9 Patient takes Gabapentin and Flexeril at home (although Flexeril is not on med list). Possible withdrawal seizure from Gabapentin. d/t patient's risk factors (DM, HTN, Obesity, HLD), must consider atypical presentation of CVA Restarted Gabapentin Started Flexeril 5mg BID PRN Consulted Neurology, appreciate recommendations. MRI w/o contrast to r/o CVA Will continue to monitor electrolytes Will continue to monitor patient for recurrence, may consider EEG pending neuro recs. (3) Hypertension Current Visit: Yes Status: Chronic Assessment and Plan: Chronic. Has been running in low 100s/70s on this admission Will continue to hold home Amlodipine and Lisinopril Will continue to monitor closely (4) Thrombocytopenia Current Visit: Yes Status: Acute Assessment and Plan: Present on admission. No signs of active bleeding. Will continue to monitor. Recommend outpatient follow-up (5) COPD (chronic obstructive pulmonary disease) Current Visit: Yes Status: Chronic Assessment and Plan: Chronic, stable. Current 2 1/2 ppd smoker. No desire to quit at this time. (6) Acute kidney injury superimposed on CKD Current Visit: Yes Status: Acute Assessment and Plan: KRYSTYNA resolved CKD3 with a baseline of approx 1.3 Cr 2.06 on admission, 1.10 today Will continue to monitor (7) Tobacco use Current Visit: No Status: Acute Assessment and Plan: Current 2 1/2 ppd smoker Patient does not have a desire to quit at this time. Educated on health risks associated with smoking. Recommend outpatient follow up. DVT Prophylaxis: No heparin due to thrombocytopenia. b/l SCDs. - Time Spent with Patient Total time spent is greater than 50% in coordination of care (as documented) at patient's floor/unit and/or counseling patient: 25 - 35 minutes Plan of Care Discussed with: patient Internal Medicine: Result - Labs CBC & Chem 7: 03/24/18 07:42 03/24/18 09:38 Labs: Short CBC 03/24/18 Range/Units 07:42 WBC 6.8 (4.3-11.1) K/mcL Hgb 14.5 (12.9-16.9) g/dL Hct 42.8 (37.5-50.1) % Plt Count 69 L (140-400) K/mcL Neutrophils # 3.6 (1.6-8.9) K/mcL BMP 03/24/18 09:38 Sodium 133 L Potassium 4.1 Chloride 107 Carbon Dioxide 20 L BUN 16 Creatinine 1.10 Glucose 412 H Calcium 8.7 - VTE Documentation of Mechanical Device: Intermittent pneumatic compression device Consult Discharge Plan - Plan [facility]errals: [facility] [Primary Care Provider] - <Gypsy Galeana - Last Filed: 03/24/18 17:11> Hospitalist Progress Note - Encounter Date of Encounter: 03/24/18 - Exam Vitals: Temp Pulse Resp BP Pulse Ox 97.8 F 97 18 131/73 97 03/24/18 10:45 03/24/18 10:45 03/24/18 10:45 03/24/18 10:45 03/24/18 10:45 - Assessment and Plan (1) Hypertension Current Visit: Yes Status: Chronic (2) Tobacco use Current Visit: No Status: Acute (3) Type 2 diabetes mellitus with hyperosmolarity without nonketotic hyperglycemic-hyperosmolar coma Current Visit: Yes Status: Resolved (4) KRYSTYNA (acute kidney injury) Current Visit: Yes Status: Resolved (5) Frequent falls Current Visit: Yes Status: Acute (6) DVT prophylaxis Current Visit: Yes Status: Acute (7) COPD (chronic obstructive pulmonary disease) Current Visit: Yes Status: Chronic - Time Spent with Patient Total time spent is greater than 50% in coordination of care (as documented) at patient's floor/unit and/or counseling patient: Internal Medicine: Result - Labs CBC & Chem 7: 03/24/18 07:42 03/24/18 09:38 Labs: Short CBC 03/24/18 Range/Units 07:42 WBC 6.8 (4.3-11.1) K/mcL Hgb 14.5 (12.9-16.9) g/dL Hct 42.8 (37.5-50.1) % Plt Count 69 L (140-400) K/mcL Neutrophils # 3.6 (1.6-8.9) K/mcL BMP 03/24/18 09:38 Sodium 133 L Potassium 4.1 Chloride 107 Carbon Dioxide 20 L BUN 16 Creatinine 1.10 Glucose 412 H Calcium 8.7 - Attending Attestation I examined this patient and my medical decision-making was reviewed with the Resident Physician Dr Hallman. I agree with the documented findings, disposition and treatment plan as described except to the extent set forth below. Mr Campbell is here with elevated blood sugars with non compliance with home metformin and KRYSTYNA, now resolved. He was independently seen and examined. Awake, complaining of "jerking and cramping" of his arm and leg muscles, which occurs at baseline at home and requesting his home flexeril and gabapentin. RN at bedside and denies change in mentation, incontinence of bowel or bladder, seizure history. No fevers, chills, n/v, abd pain. gen- alert, awake,appears stated age eyes- pupils equal round cv- reg rate and rhythm, normal s1,s2, no murmurs appreciated lungs- ctabl, no wheezing, rhonchi or crackles abd- soft, non tender, non distended, + bs neuro- AAOx3, CN grossly intact, no focal deficits Type II Diabetes, Uncontrolled with Hyperglycemia and Hgb A1C 18-2/2 non compliance with home oral agent- with resolved KRYSTYNA with resume metformin and increase dosing to BID, given his non compliance with oral meds and never being on insulin before, he is a poor candidate for home insuin use at this time, he is agreeable to continuing metformin and attempting better adherance to regimen , cont sSI and monitor SSI requirement with starting of metformin, diabetes education, nutrition education KRYSTYNA- resolved, creat improved below baseline Frequent Falls- pt/ot rec for snf and pt agreeable at this time, fall precautions, SW consult Muscle cramps/jerking, witnessed, reports chronic, not consistent with seizure activity thus far, it is an odd presentation as it resolves with discussion with patient and no focal neuro deficits, at this time not appearing to be consistent with acute cva- electrolytes at goal, will resume home flexeril at low dose, given repetitive episodes will consult neuro and recs made for addl imaging and possible eeg HTN- low normal BPs this admit, holding home bp norvasc, lisinopril meds, cont to monitor Thrombocytopenia, present on admit, no active bleeding, mechanical vte ppx, will require outpt fu [facility] <Dolores Hallman - Last Filed: 03/24/18 15:57> (3) Hypertension Qualifiers: Hypertension type: essential hypertension Qualified Code(s): I10 - Essential (primary) hypertension (5) COPD (chronic obstructive pulmonary disease) Qualifiers: COPD type: unspecified COPD Qualified Code(s): J44.9 - Chronic obstructive pulmonary disease, unspecified <Gypsy Galeana M - Last Filed: 03/24/18 17:11> (1) Hypertension Qualifiers: Hypertension type: essential hypertension Qualified Code(s): I10 - Essential (primary) hypertension (7) COPD (chronic obstructive pulmonary disease) Qualifiers: COPD type: unspecified COPD Qualified Code(s): J44.9 - Chronic obstructive pulmonary disease, unspecified
--- NOTE | 2018-03-24 16:17 | Neurology - Consult Note ---
Date of Encounter: 03/24/18 Time of Encounter: 15:13 Assessment and Plan (1) Muscle spasm Current Visit: Yes Status: Acute As patient who has an history of multiple medical condition on polypharmacy and also was on high doses of medication at home but not taking on a regular basis especially gabapentin and muscle relaxers. Is possible that he could have of withdrawal effect from these medication especially the gabapentin could cause abnormal movements in fact it can cause even seizures that time the earlier spell he had does not sound like a typical seizure. I did not notice any significant abnormalities on his current examination. Suggest to continue on gabapentin perhaps decreased the dose and keep it around 300 mg 3 times a day. At the same time continue him on Flexeril 5 mg 3 times a day. check for any other medication that may be causing of withdrawal effect. His frequent falls unlikely due to the combination of his neuropathy as well as more mechanical than anything else he could have underlying lumbar stenosis it could get an MRI of the lumbar spine to make sure there is no critical stenosis present he would benefit from gait and balance and physical therapy History of Present Illness HPI: Mr. Campbell is a 67 year old male with history of cancer, COPD, diabetes, hyperlipidemia, hypertension who admitted with concern for low blood pressure. The patient apparently has been experiencing high blood pressure for the past 2 weeks for which she has been calling the [facility] to report about, however today he reported that his blood pressure was low and was told to come to the emergency room. He notes that in this time, he has been having some dizziness and he has been unstable on his feet. He says that he has been having frequent falls over the past 2 weeks as well. this morning pt noted to have worsening "muscle spasms" noted by primary team during during examination. Patient was found violently shaking both upper extremities complaining of muscle spasm, which lasted less than 1 minute. Patient was communicating throughout the episode. After "spasm" resolved, he had equal strength bilaterally in the upper extremities. Moderate weakness of the left lower extremity. Patient denied any chest pain, lightheadedness, dizziness, or worsening of shortness of breath. No urinary incontinence during the episode. Patient has remote history of for questionable CVA/seizure in 1972 but did not have any other further episodes. His been on multiple medication he was on high doses of gabapentin but does not take it on a regularly at the same time he was on muscle relaxer but not been taking it Past Med Surg Social Fam HX - Past Medical History Medical history: cancer, COPD, diabetes, hyperlipidemia, hypertension Additional medical history: skin cancer Psychiatric history: no psych history - Past Surgical History Surgical History: other Additional surgical history: foot surgery.nose surgery - Social History Smoking Status: Current every day smoker Smokeless Tobacco Status: No Alcohol use: none Drug use: none - Family History Mother Adopted: No Age: 90 Family Member Ethnicity: Non- Living Status: Still Living Hx Family Cardiac Disorders: No Hx Family Respiratory Disorders: No Hx Family Cancer: No Hx Family GI Disorders: No Hx Family Endocrine Disorder: Yes Hx Family Neuromuscular Disorders: No Hx Family Neurologic Disorders: No Hx Family HEENT Disorders: No Hx Family Autoimmune Disorders: No Hx Family Medical Disorders: Yes (thyroid disease) Father History Unknown: Yes Living Status: Hx Family Cardiac Disorders: Yes Medications and Allergies Aspirin Enteric Coated [Aspirin EC] 81 mg PO DAILY #0 04/24/15 [History] Cetirizine HCl 10 mg PO DAILY #0 04/25/15 [History] Lisinopril [Zestril] 40 mg PO DAILY #0 04/25/15 [History] Pantoprazole Sodium [Protonix] 40 mg PO DAILY #0 04/25/15 [History] Albuterol Sulfate [Proair Hfa] 2 puff IH Q4H PRN 03/23/18 [History] Amlodipine [Norvasc] 10 mg PO DAILY 03/23/18 [History] Atorvastatin Calcium [Lipitor] 20 mg PO QPM 03/23/18 [History] Etodolac 300 mg PO BID 03/23/18 [History] Gabapentin [Neurontin] 800 mg PO BID 03/23/18 [History] Metformin HCl [Metformin HCl ER] 500 mg PO DAILY 03/23/18 [History] 3 Allergy/AdvReac Type Severity Reaction Status Date / Time No Known Allergies Allergy Verified 01/03/16 10:30 All Systems: The remainder of the systems were reviewed and are negative Physical Examination - Vital Signs Vital Signs: Initial Vital Signs Temp Pulse Resp BP Pulse Ox 98.0 F 95 18 106/64 96 03/22/18 21:10 03/22/18 21:10 03/22/18 21:10 03/22/18 21:10 03/22/18 21:10 - Exam Exam: GENERAL: Comfortable in no acute distress HEENT: Normal LUNGS: CTA HEART: RRR, S1 S2 Audible, no murmur EXTREMITIES: No Pedal edema. DETAILED NEUROLOGICAL EXAMINATION: MENTAL STATUS: Oriented to person, place, date and situation. Memory: knows the President, Aware of recent events Recent Memory Intact Attention concentration is intact Memory span is normal Cranial Nerve Examination: CN - II: Visual Acuity, Field of Vision Normal, Fundus examination: No disk edema, Pupils- size shape reaction to light and accommodation: All normal. CN III, IV, : External ocular movements were intact, Pupils were reactive, Nodrooping of the eyelids CN V: Sensation over the face to light touch and pinprick all normal. Corneal reflexes not tested, jaw jerk normal. CN VII: No facial asymmetry, no flattening of nasolabial folds, no difficulty in closing the eyes, no loss of forehead wrinkles, no difficulty in eye-closure, frowning raising eyebrows. CNVIII: No significant hearing loss CN IX, X: Uvula centralized not deviated, Gag reflex: Not tested CN X1: Sternocleidomastoid, trapezius, normal or evidence of any weakness. CN X11: No Dysarthria, no wasting or fibrilation f tongue muscles, no deviation, tongue muscle strength normal. Motor examination: No hypertrophy, tone was normal, power grade 0-5 Upper limbs Proximal- No difficulty in lifting the arms above the head. Distal- No weakness in distal muscles On formal testing 5/5 all over Lower limbs On formal testing 5/5 all over Coordination: [id number] normal. Target pursuit normal finger tapping normal, Rapid alternating moment of wrist normal Sensory system: Superficial sensations- Touch normal. Pain- Pinprick, decrease Deep sensation normal, Joint position sense normal. Cortical sensation, Tactile discrimination, localization and extinction all normal. Deep tendon reflexes. Symmetrical bilateral,hypoactive No evidence of Babinski. No sign of meningeal irritation Gait Examination: Deferred - Constitutional General appearance: comfortable Results - Laboratory Findings CBC and BMP: 03/24/18 07:42 03/24/18 09:38 Abnormal lab findings: Abnormal lab results Plt Count 69 K/mcL (140-400) L 03/24/18 07:42 Immature Plt Fraction 7.8 % (1.1-6.1) H 03/24/18 07:42 VBG pCO2 37 mmHg (41-51) L 03/22/18 23:35 VBG pO2 135 mmHg (25-50) H 03/22/18 23:35 Sodium 133 mEq/L (136-145) L 03/24/18 09:38 Carbon Dioxide 20 mEq/L (23-29) L 03/24/18 09:38 Glucose 412 mg/dL (70-105) H 03/24/18 09:38 POC Glucose 268 mg/dL (70-99) H 03/24/18 01:07 Hemoglobin A1c 18.2 % (-5.6) H 03/23/18 00:40 Phosphorus 2.1 mg/dL (2.7-4.5) L 03/24/18 07:42 Serum Total Protein 5.4 g/dL (6.4-8.9) L 03/23/18 04:43 Albumin 3.2 g/dL (3.5-5.7) L 03/23/18 04:43 Globulin 2.2 g/dL (2.4-3.5) L 03/23/18 04:43 Ur Specific [place] > 1.030 (1.010-1.025) H 03/23/18 03:48 Urine Glucose (UA) >=1000 mg/dL (Normal) H 03/23/18 03:48 Ur Squamous Epith Cells Moderate per lpf (None-Few) H 03/23/18 03:48 Consult Discharge Plan - Plan [facility]errals: [facility] [Primary Care Provider[facility] -
[2018-03-24] MEDS: 0.9 % Sodium Chloride 1,000 ML IVC SCH ×2 (16:33→16:34)
[2018-03-24] MEDS: *HR* Metformin 500 MG TABLET PO SCH (16:48)
[2018-03-24] MEDS: Gabapentin 300 MG CAPSULE PO SCH (21:48)
[2018-03-25 07:09] LABS: Immature Granulocytes % 0.5 % (0-4); Mean Corpuscular HGB Conc 32.6 g/dL (31.6-35.5); Mean Platelet Volume 10.4 fL (9.4-12.4); Red Cell Distribution Width 13.1 % (11.5-14.5)
[2018-03-25 07:11] LABS: Basophils # 0.1 K/mcL (0.0-0.2); Basophils % 0.8 %; Eosinophils # 0.2 K/mcL (0.0-0.6); Eosinophils % 2.9 %; Hematocrit 42.9 % (37.5-50.1); Immature Platelets 5.7 % (1.1-6.1); Lymphocytes # 2.4 K/mcL (0.6-4.6); Lymphocytes % 39.4 %; Mean Corpuscular Volume 95.1 fL (83.0-100.0); Monocytes # 0.4 K/mcL (0.0-1.3); Monocytes % 7.4 %; Neutrophils # 2.9 K/mcL (1.6-8.9); Red Blood Count 4.51 M/mcL (4.19-5.50)
[2018-03-25 07:17] LABS: Platelet Count 70 K/mcL (140-400)
[2018-03-25] MEDS: Insulin LISPRO 300 UNITS/3 ML VIAL SQ SCH ×4 (08:35→21:24)
[2018-03-25] MEDS: *HR* Metformin 500 MG TABLET PO SCH (08:36)
[2018-03-25] MEDS: Aspirin Enteric Coated 81 MG Tablet PO SCH (08:36)
[2018-03-25] MEDS: Gabapentin 300 MG CAPSULE PO SCH ×3 (08:37→21:20)
[2018-03-25] MEDS: Nicotine 14 MG PATCH.TD24 TD SCH (08:37)
[2018-03-25] MEDS: Loratadine 10 MG TABLET PO SCH (08:37)
[2018-03-25] MEDS ORDERED: Isovue-370 500 ML INFUS..BTL IV ONE (09:06)
[2018-03-25 09:21] LABS: BUN/Creatinine Ratio 11 (6-26); Blood Urea Nitrogen 12 mg/dL (8-23); Calcium 8.7 mg/dL (8.6-10.3); Carbon Dioxide 22 mEq/L (23-29); Chloride 107 mEq/L (98-107); Glucose 288 mg/dL (70-105); Osmolality,Calculated 286 (280-300); Potassium 4.1 mEq/L (3.5-5.1); Sodium 133 mEq/L (136-145); eGFR For Non-African Americans > 60 (> 60)
--- NOTE | 2018-03-25 15:01 | Internal Med Progress Note ---
<Gypsy Galeana - Last Filed: 03/25/18 16:12> Hospitalist Progress Note - Encounter Date of Encounter: 03/25/18 - Exam Vitals: Temp Pulse Resp BP Pulse Ox 97.7 F 85 18 115/69 97 03/25/18 11:44 03/25/18 11:44 03/25/18 11:44 03/25/18 11:44 03/25/18 11:44 - Assessment and Plan (1) Hypertension Current Visit: Yes Status: Chronic (2) Tobacco use Current Visit: No Status: Acute (3) KRYSTYNA (acute kidney injury) Current Visit: Yes Status: Resolved (4) Frequent falls Current Visit: Yes Status: Acute (5) DVT prophylaxis Current Visit: Yes Status: Acute (6) COPD (chronic obstructive pulmonary disease) Current Visit: Yes Status: Chronic (7) Severe uncontrolled diabetes mellitus Current Visit: Yes Status: Acute (8) Upper extremity myoclonus Current Visit: Yes Status: Acute (9) Thrombocytopenia Current Visit: Yes Status: Acute (10) Tobacco use Current Visit: Yes Status: Acute - Time Spent with Patient Total time spent is greater than 50% in coordination of care (as documented) at patient's floor/unit and/or counseling patient: Internal Medicine: Result - Labs CBC & Chem 7: 03/25/18 06:52 03/25/18 08:23 Labs: Short CBC 03/25/18 Range/Units 06:52 WBC 6.0 (4.3-11.1) K/mcL Hgb 14.0 (12.9-16.9) g/dL Hct 42.9 (37.5-50.1) % Plt Count 70 L (140-400) K/mcL Neutrophils # 2.9 (1.6-8.9) K/mcL BMP 03/25/18 08:23 Sodium 133 L Potassium 4.1 Chloride 107 Carbon Dioxide 22 L BUN 12 Creatinine 1.05 Glucose 288 H Calcium 8.7 - Impressions Impressions Brain MRI 03/24/18 13:19 IMPRESSION: 1. No acute intracranial abnormality. 2. Stable senescent parenchymal volume loss with mild chronic white matter microvascular ischemic changes. D/ / Hermes Dawkins / Hermes Dawkins Interpreting Provider: Hermes Dawkins Lumbar Spine MRI 03/24/18 16:23 IMPRESSION: 1. 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 2. Mild bilateral L3 through L5 neural foraminal narrowing. 3. 4.6 cm diameter fusiform infrarenal abdominal aortic aneurysm. Follow-up imaging every 6 months and vascular surgical consultation are recommended. RECOMMENDATIONS: Managing Abdominal Aortic Aneurysms 2.6-2.9 cm: Every 5 years* 3.0-3.4 cm: Every 3 years. 3.5-3.9 cm: Every 1 year. 4.0-4.4 cm: Every 1 year. Recommend vascular consultation. 4.5-5.4 cm: Every 6 months. Recommend vascular consultation. Greater than or equal to 5.5 cm: Referral to vascular surgeon. *For abdominal aortas with maximum diameter of 2.6-2.9 cm meeting criteria for AAA (>50% of proximal normal segment). Reference: J Vasc Surg. 2008;50(4 Suppl):S2-49 D/ / Hermes Dawkins / Hermes Dawkins Interpreting Provider: Hermes Dawkins Abdomen/Pelvis CTA 03/25/18 09:45 IMPRESSION: 1. 4.4 cm infrarenal abdominal aortic aneurysm. 2. 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 RECOMMENDATION: Managing Abdominal Aortic Aneurysms 4.0-4.4 cm: Every 1 year. Recommend vascular consultation. D/ / Anderson Olivier MD / Anderson Olivier MD Interpreting Provider: Anderson Olivier MD Consult Discharge Plan - Plan [facility]errals: [facility] [Primary Care Provider] - - Attending Attestation I examined this patient and my medical decision-making was reviewed with the Resident Physician Dr Holland. I agree with the documented findings, disposition and treatment plan as described except to the extent set forth below/addl details as below. Mr Campbell is here with elevated blood sugars with non compliance with home metformin and KRYSTYNA, now resolved. He is complaining of chronic muscle jerking/ cramping movements being worked up by neuro and inconsistent with seziure activity. He has multiple falls at home with ambulatory dysfunction but is refusing ECF placement. Awake, cont movements of his arm and leg muscles intermittently without change inmentation, bowel or bladder incontinence. No fevers, chills, n/v, abd pain. Discussion had regarding AAA which he now reports he was aware of and is [facility]. He is not agreeable to stating insulin and discharging on insulin this admission He thinks it "sounds like a lot of work" and he doesn't think he could do it. Is agreeable to changing oral regimen further. gen- alert, awake,appears stated age cv- reg rate and rhythm, normal s1,s2, no murmurs appreciated lungs- ctabl, no wheezing, rhonchi or crackles, normal resp effort neuro- AAOx3, CN grossly intact, no focal deficits, strength 5/5 throughout, normal muscle tone, no fasciculations appreciated Type II Diabetes, Uncontrolled with Hyperglycemia and Hgb A1C 18-2/2 non compliance with home oral agent- had resumed metfomin, but given need for CTA to assess further AAA per vasc surg , need to now stop discussed indtail with pt and he is refusing insulin on discharge but agreable to oral med changes d/w pharmacy in detail and given A1c he is good candidate for triple therapy -- will begin glipizide and tradjenta and victoz if formulary, if not will ahve to send rxs for these on dc -cont ssi and accu checks -he also need diabetic testing supplies on dc -[facility] will need follow [facility] for further diabetes maangement on dc Frequent Falls- pt/ot rec for snf and pt agreeable Muscle cramps/jerking, witnessed, reports chronic, not consistent with seizure activity it is an odd presentation as it resolves with discussion with patient and no focal neuro deficits, neuro following, MRI head negative, flexeril and gabapentin at recommended neuro doses Degenerative changes of the Lumbar spine as confirmed on MRI L spine which was obtained by neuro for frequent falls- rec for cont flexeril and outpt painmanagement, pt/ot on dc Incidental AAA 4.6 cm noted on MRI lumbar spine- per pt was aware and [facility]- vasc surg consulted given rads recs and CTA to be obtained HTN- low normal BPs this admit, holding home bp norvasc, lisinopril meds, cont to monitor Thrombocytopenia, present on admit, no active bleeding, mechanical vte ppx, will require outpt fu on dc with [facility] Of note on admission he had hyponatremia due to hyperglycemia, correcting as appropriate with improved blood sugars <Rich Hollanda - Last Filed: 03/25/18 17:36> Hospitalist Progress Note - Encounter Date of Encounter: 03/25/18 Time of Encounter: 14:58 - Subjective Interval History: Mr. Campbell was seen at bedside this morning. His vitals were stable He stated overnight. Two days ago he had episodes of arm tremors which he noted as muscle spasm. Yesterday he was found to be violently shaking his arms yesterday and was communicating during those episodes. He had one more episode of hand tremors overnight but was not witness by anyone. He was comfortable in bed. Neurology saw him today and recommended muscle relaxant for his back pain and weakness. He denied chest pain, nausea, chest pain or urinary incontinence during these episodes. - Exam Vitals: Temp Pulse Resp BP Pulse Ox 97.7 F 85 18 115/69 97 03/25/18 11:44 03/25/18 11:44 03/25/18 11:44 03/25/18 11:44 03/25/18 11:44 Exam: Gen: Obese male, comfortable in bed, awake, alert and oriented HEENT: Atraumatic, normocephalic Cardiac: RRR, no murmur, +S1/S2, no edema Pulmonary: mild crackles at right upper lung lobes Abdomen: soft, nontender, no guarding Extremities: no LE edema, no cyanosis or clubbing Neuro: Equal strength bilaterally in the upper extremities. Sensation and strength were noted to be intact in bilateral lower extremities. No facial droop or slurring of speech. Psych: Anxious. Answers questions appropriately. - Assessment and Plan (1) Severe uncontrolled diabetes mellitus Current Visit: Yes Status: Acute Assessment and Plan: Chronic, uncontrolled. Glu 883 on admission, now in mid 200s, 245 today. A1c 18.2 03/23 Non-compliant on Metformin 500 QD at home Started Metformin 500 BID with moderate dose SSI, will monitor insulin needs and reassess tomorrow If he is going to be discharged home he does not feel safe to start insulin, but would benefit given his uncontrolled diabetes Consulting nutrition for diabetic diet education Patient would likely benefit from outpatient diabetes education Recommend Endocrine follow up as an outpatient Needs close follow up outpatient (2) Abdominal aortic aneurysm Current Visit: Yes Status: Acute Assessment and Plan: Noted on MRI lumbar and CT of the abdomen and pelvis. CTA reading: Moderate atherosclerosis involves the abdominal aorta and bilateral common iliac arteries. The previously noted infrarenal abdominal aortic aneurysm has slightly increased measuring 4.4 x 4.7 cm, previously measuring 4.1 x 4.2 cm. In addition, there is unchanged aneurysmal dilatation of the distal left common iliac artery measuring 1.8 cm Plan: Consulted vascular surgery, appreciate recommendations They recommended CTA which has been completed Counseled on smoking cessation but he is not interested (3) Hypertension Current Visit: Yes Status: Chronic Assessment and Plan: Chronic. Stable since this admission Plan: Will continue to hold home Amlodipine and Lisinopril Will continue to monitor closely (4) Tobacco use Current Visit: No Status: Acute Assessment and Plan: Current 2 /2 ppd smoker Patient does not have a desire to quit at this time Plan:. Educated on health risks associated with smoking. Informed him the risk of continuing to smoke as it is linked to abdominal aortic aneurysm which he has. Recommend outpatient follow up. (5) Upper extremity myoclonus Current Visit: Yes Status: Acute Assessment and Plan: Patient reports chronic issues with "muscle spasms" at home. Increased in frequency and severity since admission. Isolated to bilateral upper extremities. Less likely electrolyte cause as sodium at the onset of presenattion was 133, potassium at 4.1 and magnesium was 1.9. Patient takes Gabapentin and Flexeril at home (although Flexeril is not on med list). Possible due to withdrawl from Gabapentin. Due to given his risk factors (DM, HTN, Obesity, HLD), atypical stroke was ruled out. Plan: Continue Gabapentin Consulted Neurology Neurology recommended muscle relaxant, continue Flexeril 5mg BID PRN MRI of the brain did not show any causation MRI of the lumbar showed abdominal aortic aneursym and degenerative changes Will continue to monitor electrolytes Will continue to monitor patient for recurrence (6) COPD (chronic obstructive pulmonary disease) Current Visit: No Status: Chronic Assessment and Plan: COPD per patient history. Not in acute exacerbation. Continue home meds (7) Thrombocytopenia Current Visit: Yes Status: Acute Assessment and Plan: Present on admission. No signs of active bleeding. No purpura noted. No sign of active infection. Plan: Will continue to monitor. Recommend outpatient follow-up (8) Tobacco use Current Visit: Yes Status: Chronic Assessment and Plan: Current 2 1/2 ppd smoker. Patient does not have a desire to quit at this time. Plan: Educated on health risks associated with smoking Discussed with him that one risk factor for abdominal aortic aneurysm is high blood pressure and smoking. Recommend outpatient follow up (9) Acute kidney injury superimposed on CKD Current Visit: Yes Status: Resolved Assessment and Plan: CKD3 with a baseline of approx 1.3 Cr 2.06 on admission, 1.05 today Plan: Avoid nephrotoxins Will continue to monitor (10) DVT prophylaxis Current Visit: Yes Status: Acute Assessment and Plan: Patient is thrombocytopenic, so avoiding heparin. Continue scds. - Time Spent with Patient Total time spent is greater than 50% in coordination of care (as documented) at patient's floor/unit and/or counseling patient: 25 - 35 minutes Plan of Care Discussed with: patient Internal Medicine: Result - Labs CBC & Chem 7: 03/25/18 06:52 03/25/18 08:23 Labs: Short CBC 03/25/18 Range/Units 06:52 WBC 6.0 (4.3-11.1) K/mcL Hgb 14.0 (12.9-16.9) g/dL Hct 42.9 (37.5-50.1) % Plt Count 70 L (140-400) K/mcL Neutrophils # 2.9 (1.6-8.9) K/mcL BMP 03/25/18 08:23 Sodium 133 L Potassium 4.1 Chloride 107 Carbon Dioxide 22 L BUN 12 Creatinine 1.05 Glucose 288 H Calcium 8.7 - Impressions Impressions Brain MRI 03/24/18 13:19 IMPRESSION: 1. No acute intracranial abnormality. 2. Stable senescent parenchymal volume loss with mild chronic white matter microvascular ischemic changes. D/ / Hermes Dawkins / Hermes Dawkins Interpreting Provider: Hermes Dawkins Lumbar Spine MRI 03/24/18 16:23 IMPRESSION: 1. 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 2. Mild bilateral L3 through L5 neural foraminal narrowing. 3. 4.6 cm diameter fusiform infrarenal abdominal aortic aneurysm. Follow-up imaging every 6 months and vascular surgical consultation are recommended. RECOMMENDATIONS: Managing Abdominal Aortic Aneurysms 2.6-2.9 cm: Every 5 years* 3.0-3.4 cm: Every 3 years. 3.5-3.9 cm: Every 1 year. 4.0-4.4 cm: Every 1 year. Recommend vascular consultation. 4.5-5.4 cm: Every 6 months. Recommend vascular consultation. Greater than or equal to 5.5 cm: Referral to vascular surgeon. *For abdominal aortas with maximum diameter of 2.6-2.9 cm meeting criteria for AAA (>50% of proximal normal segment). Reference: J Vasc Surg. 2009 Mar;50(4 Suppl):S2-49 D/ / Hermes Dawkins / Hermes Dawkins Interpreting Provider: Hermes Dawkins Abdomen/Pelvis CTA 03/25/18 09:45 IMPRESSION: 1. 4.4 cm infrarenal abdominal aortic aneurysm. 2. 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 RECOMMENDATION: Managing Abdominal Aortic Aneurysms 4.0-4.4 cm: Every 1 year. Recommend vascular consultation. D/ / Anderson Olivier MD / Anderson Olivier MD Interpreting Provider: Anderson Olivier MD - VTE Documentation of Mechanical Device: Intermittent pneumatic compression device <Gypsy Galeana - Last Filed: 03/25/18 16:12> (1) Hypertension Qualifiers: Hypertension type: essential hypertension Qualified Code(s): I10 - Essential (primary) hypertension (6) COPD (chronic obstructive pulmonary disease) Qualifiers: COPD type: unspecified COPD Qualified Code(s): J44.9 - Chronic obstructive pulmonary disease, unspecified <Skyler,Shavon - Last Filed: 03/25/18 17:36> (2) Abdominal aortic aneurysm Qualifiers: Presence of rupture: without rupture Qualified Code(s): I71.4 - Abdominal aortic aneurysm, without rupture (3) Hypertension Qualifiers: Hypertension type: essential hypertension Qualified Code(s): I10 - Essential (primary) hypertension (6) COPD (chronic obstructive pulmonary disease) Qualifiers: COPD type: unspecified COPD Qualified Code(s): J44.9 - Chronic obstructive pulmonary disease, unspecified
--- NOTE | 2018-03-25 15:43 | Neurology Progress Note ---
Date of Encounter: 03/25/18 Time of Encounter: 08:30 Assessment and Plan (1) Muscle spasm Current Visit: Yes Status: Acute No evidence of any seizure or any stroke on MRI of the brain suggests continue on muscle relaxer no indication for any antiepileptics as really doubt that these are seizures. Significant degenerative changes of the lumbar spine noted continue on gabapentin muscle relaxers follow-up with pain management as an outpatient His difficulty with a gait and balance likely due to his back issues would benefit from short-term rehabilitation sTable from neurology standpoint Subjective Interval history: In seen as an follow-up he denies any other new symptoms no further episodes of jerking of the arms he did have some spasms of his back and leg muscles currently he is on muscle relaxers. MRI of the brain did not show any acute abnormality. MRI of the lumbar spine did shows evidence of multilevel degenerative changes throughout his whole spine but no critical stenosis reported Objective - Constitutional Vitals: Temp Pulse Resp BP Pulse Ox 97.7 F 85 18 115/69 97 03/25/18 11:44 03/25/18 11:44 03/25/18 11:44 03/25/18 11:44 03/25/18 11:44 - VTE Documentation of Mechanical Device: Intermittent pneumatic compression device Results - Laboratory Findings CBC and BMP: 03/25/18 06:52 03/25/18 08:23 Abnormal lab findings: Abnormal lab results Plt Count 70 K/mcL (140-400) L 03/25/18 06:52 VBG pCO2 37 mmHg (41-51) L 03/22/18 23:35 VBG pO2 135 mmHg (25-50) H 03/22/18 23:35 Sodium 133 mEq/L (136-145) L 03/25/18 08:23 Carbon Dioxide 22 mEq/L (23-29) L 03/25/18 08:23 Glucose 288 mg/dL (70-105) H 03/25/18 08:23 POC Glucose 245 mg/dL (70-99) H 03/25/18 11:43 Hemoglobin A1c 18.2 % (-5.6) H 03/23/18 00:40 Phosphorus 2.1 mg/dL (2.7-4.5) L 03/24/18 07:42 Serum Total Protein 5.4 g/dL (6.4-8.9) L 03/23/18 04:43 Albumin 3.2 g/dL (3.5-5.7) L 03/23/18 04:43 Globulin 2.2 g/dL (2.4-3.5) L 03/23/18 04:43 Vitamin B12 230 pg/mL (250-1100) L 03/24/18 16:30 Ur Specific [place] > 1.030 (1.010-1.025) H 03/23/18 03:48 Urine Glucose (UA) >=1000 mg/dL (Normal) H 03/23/18 03:48 Ur Squamous Epith Cells Moderate per lpf (None-Few) H 03/23/18 03:48 - Diagnostic Findings Additional findings: MRI of the lumbar spine showed 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 2. Mild bilateral L3 through L5 neural foraminal narrowing. 3. 4.6 cm diameter fusiform infrarenal abdominal aortic aneurysm. seem to be incidental finding further workup as per primary team Consult Discharge Plan - Plan [facility]errals: [facility] [Primary Care Provider] -
[2018-03-25] MEDS: *HR* GlipiZIDE 5 MG TABLET PO SCH (16:53)
--- NOTE | 2018-03-25 18:27 | Vascular/Endovasc Consult Note ---
Date of Encounter: 03/25/18 Time of Encounter: 17:30 Assessment and Plan (1) Severe uncontrolled diabetes mellitus Current Visit: Yes Status: Acute Severe diabetes under active management at this time. (2) Tobacco use Current Visit: Yes Status: Chronic Patient has a chronic history of tobacco abuse. (3) Abdominal aortic aneurysm Current Visit: Yes Status: Chronic On further rushing the patient demonstrates that his aneurysm was detected about 2 years ago and is being followed every 6 months by ultrasound [facility] the [facility]. I discussed with him the natural history of abdominal aortic aneurysms. I stressed the need for controlling risk factors previously hypertension and COPD. I've asked him to contact family members to inform them of his aneurysm so that they will be screened for occult aneurysms as well. The patient was invited to follow-up through the [facility] vascular surgery clinic every 6 months or to follow up with the [facility] every 6 months with outpatient abdominal ultrasounds. All questions were answered. Patient expresses understanding of the issues. Qualifiers: Presence of rupture: without rupture Qualified Code(s): I71.4 - Abdominal aortic aneurysm, without rupture - History of Present Illness Consult date: 03/25/18 Consult reason: Abdominal aortic aneurysm Chief complaint: Dizziness and instability with falls History of present illness: Mr. Campbell is a 67 year old male Was admitted a few days ago for multiple symptoms. These included concern about low blood pressure and dizziness and instability as well as frequent falls and spasms of his extremities. On initial evaluation however he was found to have a blood sugar of greater than 800 with marked hyponatremia of less than 120. Therefore he was admitted for further evaluation and treatment. Because of spasms and history of falls and MRI of his spine was performed. This demonstrated a 4.4 cm abdominal aortic aneurysm. Vascular surgery was then asked to see the patient because of this. The patient is a very imprecise historian but after multiple questions and discussion I was able to ascertain that he was told he had an aneurysm about 2 years ago. He states that he is receiving ultras[facility] the [facility] every 6 months. He does not know the size of the aneurysm measured by ultrasound area he denies any abdominal or back pain that would be consistent with the aneurysmal process. I've requested a CT angiogram of the abdomen and pelvis. I personally reviewed these images. They demonstrated a 4.2 cm distal infrarenal abdominal aortic aneurysm. There is no sign of hematoma or bleeding. There is no retroperitoneal edema. The patient denies any family history of abdominal aortic aneurysms. Patient has multiple ongoing risk factors for vascular disease that include diabetes, COPD, hypercholesterolemia, hypertension, and long-standing tobacco abuse. Past Med Surg Social Fam HX - Past Medical History Medical history: cancer, COPD, diabetes, hyperlipidemia, hypertension Additional medical history: skin cancer Psychiatric history: no psych history - Past Surgical History Surgical History: other Additional surgical history: foot surgery.nose surgery - Social History Smoking Status: Current every day smoker Smokeless Tobacco Status: No Alcohol use: none Drug use: none - Family History Mother Adopted: No Age: 90 Family Member Ethnicity: Non- Living Status: Still Living Hx Family Cardiac Disorders: No Hx Family Respiratory Disorders: No Hx Family Cancer: No Hx Family GI Disorders: No Hx Family Endocrine Disorder: Yes Hx Family Neuromuscular Disorders: No Hx Family Neurologic Disorders: No Hx Family HEENT Disorders: No Hx Family Autoimmune Disorders: No Hx Family Medical Disorders: Yes (thyroid disease) Father History Unknown: Yes Living Status: Hx Family Cardiac Disorders: Yes Medications and Allergies Aspirin Enteric Coated [Aspirin EC] 81 mg PO DAILY #0 04/24/15 [History] Cetirizine HCl 10 mg PO DAILY #0 04/25/15 [History] Lisinopril [Zestril] 40 mg PO DAILY #0 04/25/15 [History] Pantoprazole Sodium [Protonix] 40 mg PO DAILY #0 04/25/15 [History] Albuterol Sulfate [Proair Hfa] 2 puff IH Q4H PRN 03/23/18 [History] Amlodipine [Norvasc] 10 mg PO DAILY 03/23/18 [History] Atorvastatin Calcium [Lipitor] 20 mg PO QPM 03/23/18 [History] Etodolac 300 mg PO BID 03/23/18 [History] Gabapentin [Neurontin] 800 mg PO BID 03/23/18 [History] Metformin HCl [Metformin HCl ER] 500 mg PO DAILY 03/23/18 [History] 3 Allergy/AdvReac Type Severity Reaction Status Date / Time No Known Allergies Allergy Verified 01/03/16 10:30 All Systems Review: The remainder of the systems were reviewed and are negative Exam Vital Signs, Last 4 Hours Temp Pulse Resp BP Pulse Ox 03/25/18 16:15 97.8 F 99 18 114/66 97 General: Present: Conversant, No Apparent Distress, Well developed, Well nourished, Other (Obese elderly male) HEENT: Present: Atraumatic, Normocephaly, Trachea midline, Pupils equal Neck: Absent: JVD, Lymphadenopathy, Left Carotid bruit, Right Carotid bruit, Midline deformity, Tracheal deviation Cardiac: Present: Reg Rate and Rhythm, Normal S1 and S2, No Murmur. Absent: Irregular Rhythm Lungs: Present: Normal Breath Sounds, No Wheeze, Rales, Rhonchi Neuro: Present: Alert and responsive, No focal deficits noted, Cranial nerves grossly intact, Motor nerves grossly intact, Sensory nerves grossly intact Abdomen: Present: Soft, Non-tender, Other (Obese abdomen. No abdominal bruits. No palpable pulsatile masses. No ecchymosis in the per umbilical or flank region area). Absent: Masses Vascular: Present: Normal capillary refill, Pulse, normal, Color/Temperature ( Feet are warm and pink). Absent: Bruit, Clubbing, Cyanosis, Amputation(s) Skin: Present: No rashes noted on visualized skin Consult Discharge Plan - Plan Referrals: [facility] [Primary Care Provider] -
[2018-03-26 04:54] LABS: Basophils % 0.8 %; Immature Granulocytes % 0.4 % (0-4); Mean Corpuscular HGB Conc 32.7 g/dL (31.6-35.5); Monocytes % 8.6 %; Red Cell Distribution Width 13.1 % (11.5-14.5)
[2018-03-26 04:56] LABS: Eosinophils # 0.2 K/mcL (0.0-0.6); Eosinophils % 3.4 %; Hematocrit 41.3 % (37.5-50.1); Hemoglobin 13.5 g/dL (12.9-16.9); Lymphocytes # 1.9 K/mcL (0.6-4.6); Lymphocytes % 38.8 %; Mean Corpuscular Volume 94.9 fL (83.0-100.0); Mean Platelet Volume 10.5 fL (9.4-12.4); Monocytes # 0.4 K/mcL (0.0-1.3); Neutrophils # 2.4 K/mcL (1.6-8.9); Red Blood Count 4.35 M/mcL (4.19-5.50)
[2018-03-26 05:13] LABS: Platelet Count 74 K/mcL (140-400)
[2018-03-26 05:15] LABS: BUN/Creatinine Ratio 13 (6-26); Blood Urea Nitrogen 13 mg/dL (8-23); Calcium 8.5 mg/dL (8.6-10.3); Carbon Dioxide 22 mEq/L (23-29); Chloride 107 mEq/L (98-107); Glucose 194 mg/dL (70-105); Osmolality,Calculated 285 (280-300); Potassium 4.1 mEq/L (3.5-5.1); Sodium 135 mEq/L (136-145); eGFR For Non-African Americans > 60 (> 60)
--- NOTE | 2018-03-26 09:36 | Electrocardiograph Report ---
[place] [id number] Test Date: 2018-03-22 Pat Name: Harvey Campbell Department: EXAM2 Room: 2A Gender: M Animal Care Giver: : 1950 Requested By: Dannie Campbell Order Number: [id number] Reading MD: Warner Ellis Measurements Intervals [place] Rate: 85 P: 66 PA: 191 QRS: -58 QRSD: 97 T: 42 QT: 352 QTc: 419 Interpretive Statements Sinus rhythm Left anterior fascicular block Low voltage, precordial leads Consider anterior infarct Electronically Signed On 03-26-2018 9:34:14 EDT by Warner Ellis
[2018-03-26] MEDS: Insulin LISPRO 300 UNITS/3 ML VIAL SQ SCH ×2 (09:41→11:59)
[2018-03-26] MEDS: Aspirin Enteric Coated 81 MG Tablet PO SCH (09:43)
[2018-03-26] MEDS: Nicotine 14 MG PATCH.TD24 TD SCH (09:43)
[2018-03-26] MEDS: Loratadine 10 MG TABLET PO SCH (09:43)
[2018-03-26] MEDS: Gabapentin 300 MG CAPSULE PO SCH ×2 (09:43→16:00)
[2018-03-26] MEDS: *HR* GlipiZIDE 5 MG TABLET PO SCH (09:43)
[2018-03-26 11:13] VITALS: BP 109/72
--- NOTE | 2018-03-26 13:55 | Discharge Summary ---
<Gypsy Galeana - Last Filed: 03/26/18 16:07> Date of Encounter: 03/26/18 - Discharge Diagnosis (1) Hypertension Status: Chronic Qualifiers: Hypertension type: essential hypertension Qualified Code(s): I10 - Essential (primary) hypertension (2) Tobacco use Status: Acute (3) KRYSTYNA (acute kidney injury) Status: Deleted (4) Frequent falls Status: Deleted (5) DVT prophylaxis Status: Acute (6) COPD (chronic obstructive pulmonary disease) Status: Chronic Qualifiers: COPD type: unspecified COPD Qualified Code(s): J44.9 - Chronic obstructive pulmonary disease, unspecified (7) Severe uncontrolled diabetes mellitus Status: Acute (8) Upper extremity myoclonus Status: Acute (9) Thrombocytopenia Status: Acute (10) Tobacco use Status: Chronic Hospital course: Mr. Campbell is a 67 year old male - Time Spent with Patient Total time spent providing and/or coordinating discharge services: - Discharge Medications Prescriptions: Canagliflozin [Invokana] 100 mg PO DAILY #30 tablet Cyclobenzaprine [Flexeril] 5 mg PO TID #21 tablet Gabapentin [Neurontin] 300 mg PO TID #21 capsule Linagliptin [Tradjenta] 5 mg PO DAILY #30 tablet Home Medications: Aspirin Enteric Coated [Aspirin EC] 81 mg PO DAILY #0 04/24/15 [History] Cetirizine HCl 10 mg PO DAILY #0 04/25/15 [History] Pantoprazole Sodium [Protonix] 40 mg PO DAILY #0 04/25/15 [History] Albuterol Sulfate [Proair Hfa] 2 puff IH Q4H PRN 03/23/18 [History] Atorvastatin Calcium [Lipitor] 20 mg PO QPM 03/23/18 [History] Etodolac 300 mg PO BID 03/23/18 [History] Canagliflozin [Invokana] 100 mg PO DAILY #30 tablet 03/26/18 [Rx] Cyclobenzaprine [Flexeril] 5 mg PO TID #21 tablet 03/26/18 [Rx] Fluticasone Propionate Nasal [Flonase] 50 mcg NS DAILY PRN bottle 03/26/18 [Rx] Gabapentin [Neurontin] 300 mg PO TID #21 capsule 03/26/18 [Rx] GuaiFENesin ER [Mucinex] 1,200 mg PO Q12H tbbp.12hr 03/26/18 [Rx] Linagliptin [Tradjenta] 5 mg PO DAILY #30 tablet 03/26/18 [Rx] glipiZIDE [Glucotrol] 2.5 mg PO BIDWM tablet 03/26/18 [Rx] Allergies/Adverse Reactions: 3 Allergy/AdvReac Type Severity Reaction Status Date / Time No Known Allergies Allergy Verified 01/03/16 10:30 Date of admission: 03/23/18 00:49 Primary care physician: [facility] Consults: 03/23/18 02:40 PT [Consult to Physical Therapy] [CONS] Routine Comment: Evaluate, develop and implement POC Reason for Consult: Frequent falls, evaluate for balance Does patient have active BEDREST order?: No Is patient medically & hemodynamically stable?: Yes 03/23/18 08:28 Consult to Occupational Therapy [CONS] Routine Comment: Evaluate, develop and implement POC Reason for Consult: has had several falls in past couple weeks Does patient have active BEDREST order?: No Is patient medically & hemodynamically stable?: Yes Patient assessed for mobility or mobilized this visit?: No 03/24/18 09:33 Consult to [employer] [CONS] Routine Reason for SW Consult: pt needs ecf per therapy 03/24/18 11:37 Consult to Neurology [CONS] Routine Consulting Provider: [facility] Reason for Consult: History of muscle spasms on gabapentin and flexeril at home, but patient reporting loss of bladder incontinence. Multiple "muscle spasm" episodes overnight, increasing in frequency. Patient maintains consiousness during episodes. No history of seizure disorder. Call Completed: Yes 03/25/18 11:00 Consult to Vascular Surgery [CONS] Routine Consulting Provider: [facility] [place] Reason for Consult: abdominal aortic aneurysm Call Completed: Yes - Constitutional Vitals: Temp Pulse Resp BP Pulse Ox 97.7 F 70 17 109/72 96 03/26/18 11:11 03/26/18 11:11 03/26/18 11:11 03/26/18 11:11 03/26/18 11:11 - Patient Status Disposition: Home, Self-Care Condition: Good Overall status at discharge: patient is progressing back to baseline - Discharge Instructions Instructions: Linagliptin (By mouth), Canagliflozin (By mouth), Diabetic Hyperglycemia (DC) Follow Up With: JCARLOS,PCP [Primary Care Provider] - 04/02/18 11:15 am (Please follow up as schedule...) - Attending Attestation I examined this patient and my medical decision-making was reviewed with the Resident Physician Dr Reyes. I agree with the documented findings, disposition and treatment plan as described except to the extent set forth below/addl details as below. Mr Campbell is here with elevated blood sugars with non compliance with home metformin and KRYSTYNA, now resolved. He complained of chronic muscle jerking/ cramping movements was worked up by neuro and inconsistent with seziure activity , most likely related to med w/d (gabapentin). He has multiple falls at home with ambulatory dysfunction but is refusing ECF placement. He was started on new oral diabetes regimen as he refused insulin treatment. He is being dc to home with home health for PT/OT and close outpt [facility] follow up with pcp, endocrinology, pain management. Awake, feeling very well. No muscle jerks. No abd pain, nausea or emesis. Happy to dc to home today. gen- alert, awake,appears stated age, nad cv- reg rate and rhythm, normal s1,s2, no murmurs appreciated lungs- ctabl, no wheezing, rhonchi or crackles, normal resp effort on room air neuro- AAOx3, CN grossly intact, no focal deficits Type II Diabetes, Uncontrolled with Hyperglycemia and Hgb A1C 18-2/2 non compliance with home oral agent- now improved Pt a1c was 18 on admit with inermittent compliance with metformin, discussed in detail with pt the ideaof starting insulin for his diabetes and he refused insulin on discharge but agreeable to oral med changes d/w pharmacy in detail and given A1c he is good candidate for triple therapy -- we began glipizide and recommend tradjenta and invokana (not victoza as documented in error yesterday) but are not formulary here, willdc home with rxs for them -cont accu checks at home as counselled on and rxs for testing supplies provided -he is [facility] with [facility] will need follow up there for further diabetes management on dc Frequent Falls- pt/ot rec for snf and pt refused, agreeable to home pt/ot which is arranged Muscle cramps/jerking, witnessed, reports chronic, not consistent with seizure activity -neuro followed, MRI head negative, flexeril and gabapentin at recommended neuro doses as suspect was related to withdrawal from withholding gabapentin and rec made to change dosing to TID from home dose, which was done this admission with good effect Degenerative changes of the Lumbar spine as confirmed on MRI L spine which was obtained by neuro for frequent falls- rec for cont flexeril and outpt pain management, pt/ot on dc Incidental AAA 4.6 cm noted on MRI lumbar spine- per pt was aware and [facility] monitoring q 6 months- vasc surg consulted given rads recs and reviewed CTA, outpt fu HTN- low normal BPs this admit, held home bp norvasc, lisinopril on admit due to hypotension and bps remained low normotensive without them, dc with outpt fu and re initiation, lili of acei as bp permits outpt Thrombocytopenia, present on admit, no active bleeding stable this admit, will require outpt fu on dc with PCP [facility] dc to home <Dolores Hallman - Last Filed: 03/26/18 17:33> - NOTES TO OUTPATIENT PROVIDER Notes to Outpatient Provider: Patient needs close outpatient follow [facility] with [facility] for diabetes management with possible referral to endocrine, muscle cramps on Gabapentin and Flexeril, thrombocytopenia, and AAA needing follow-up imaging in 6 months. Patient refusing insulin at this time and is being sent home on triple therapy. PT/OT through the [facility] as an outpatient for frequent falls and degenerative changes of the spine. Recommend pain managemant follow- up as well. Date of Encounter: 03/26/18 Time of Encounter: 09:47 - Discharge Diagnosis (1) Severe uncontrolled diabetes mellitus Priority: Primary Status: Chronic (2) Upper extremity myoclonus Priority: Primary Status: Acute (3) Hypertension Priority: Secondary Status: Chronic Qualifiers: Hypertension type: essential hypertension Qualified Code(s): I10 - Essential (primary) hypertension (4) Thrombocytopenia Priority: Secondary Status: Acute (5) COPD (chronic obstructive pulmonary disease) Priority: Secondary Status: Chronic Qualifiers: COPD type: unspecified COPD Qualified Code(s): J44.9 - Chronic obstructive pulmonary disease, unspecified (6) Acute kidney injury superimposed on CKD Priority: Secondary Status: Resolved (7) Tobacco use Priority: Secondary Status: Acute Hospital course: Mr. Campbell is a 67 year old male with pmh history of cancer, COPD, diabetes, hyperlipidemia, hypertension who presented to [facility] ED on 03/23/18 with the complaint of low BP. According to the patient, he is seen at the [facility] where they had recently adjusted his BP medications. He was taking lisinopril and amlodipine and was told to monitor his BP daily and report it to the ID. When his pressures were low on 03/23/18, he was told to go to the nearest ED for evaluation. Upon presentation, he complained of being more dizzy than normal which he believed to be a result of a recent increase in amlodipine from 5mg to 10mg. He also admitted to recent falls as well as episodes of N/V/ D. BMP showed patient's glucose was 883, Na of 119, K of 5.2, as well as an elevated BUN of 36 and Cr. of 2.06. Patient did not have an anion gap on presentation and his serum osmolatiry was WNL. BP meds were held. Pt was given IVF and insulin. Pt symptoms initally improved. Pt had an KRYSTYNA on presentation which resolved with IVF. During visit, he complained of worsening muscle spasms for which neurology was consulted. It was discovered that he had a questionable history of CVA/seizure in 1972 but did not report any further episodes. MRI was performed, which revealed no acute intracranial changes, but did reveal some degenerative changes to the lumbar spine. Neurology believed the muscle jerking episodes were due to medication withdrawal as patient was taking gabapentin and flexeril at home. Neuro recommend restarting gabapentin and flexeril and following up with pain management as an outpatient. The degenerative changes in lumbar spine could account for his pain. His blood pressure throughout his stay remained in the low 100s systolic, which may have been contributing to his frequent falls. 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 Vascular surgery was consulted. It was later discovered that he was aware of these aneurysms and was receiving ultrasounds through the ID every 6 months. Risk factor control was stressed with patient by vascular surgery. ~ During admission, Mr. Campbell was educated on smoking cessation, diabetes management, and healthy diet. PT/OT and social work evaluated patient while admitted. He will be discharged home in stable condition with instructions to f/ u with his pcp. Pt refused insulin on discharge but was agreeable to oral medication changes. He received scripts for triple therapy with glipizide and tradjenta and Invokana. Bp was low during admission, will continue to hold anti- hypertensives with close outpatient follow-up with PCP. Discharge discussed with: patient Time spent discussing smoking cessation with patient: more than 10 minutes - Time Spent with Patient Total time spent providing and/or coordinating discharge services: Date of admission: 03/23/18 00:49 Primary care physician: PCP ID Consults: 03/23/18 02:40 PT [Consult to Physical Therapy] [CONS] Routine Comment: Evaluate, develop and implement POC Reason for Consult: Frequent falls, evaluate for balance Does patient have active BEDREST order?: No Is patient medically & hemodynamically stable?: Yes 03/23/18 08:28 Consult to Occupational Therapy [CONS] Routine Comment: Evaluate, develop and implement POC Reason for Consult: has had several falls in past couple weeks Does patient have active BEDREST order?: No Is patient medically & hemodynamically stable?: Yes Patient assessed for mobility or mobilized this visit?: No 03/24/18 09:33 Consult to [employer] [CONS] Routine Reason for SW Consult: pt needs ecf per therapy 03/24/18 11:37 Consult to Neurology [CONS] Routine Consulting Provider: [facility] Reason for Consult: History of muscle spasms on gabapentin and flexeril at home, but patient reporting loss of bladder incontinence. Multiple "muscle spasm" episodes overnight, increasing in frequency. Patient maintains consiousness during episodes. No history of seizure disorder. Call Completed: Yes 03/25/18 11:00 Consult to Vascular Surgery [CONS] Routine Consulting Provider: [facility] Reason for Consult: abdominal aortic aneurysm Call Completed: Yes - Constitutional Vitals: Temp Pulse Resp BP Pulse Ox 97.7 F 70 17 109/72 96 03/26/18 11:11 03/26/18 11:11 03/26/18 11:11 03/26/18 11:11 03/26/18 11:11 Exam: Gen: Obese male, sitting comfortably in chair, awake, alert and oriented HEENT: Atraumatic, normocephalic Cardiac: RRR, no murmur, +S1/S2, no edema Pulmonary: CTAB, no wheezing Abdomen: soft, nontender, no guarding Extremities: no LE edema, no cyanosis or clubbing Neuro: Muscle spasms have resolved, normal strength and tone Psych: Answers questions appropriately. - Patient Status Functional capacity at discharge: uses cane/walker Overall status at discharge: patient is progressing back to baseline - Diet and Activity Activity: as per physical therapy Diet: diabetic diet - VTE Documentation of Mechanical Device: Intermittent pneumatic compression device
--- NOTE | 2018-03-26 16:21 | Physician Discharge Referral ---
Home Health/Hosp Referral Info Transfer to: Home Health Provider in Charge Post Discharge: PCP - Diagnosis (1) Hypertension Priority: Secondary Status: Chronic (2) Tobacco use Priority: Secondary Status: Acute (3) KRYSTYNA (acute kidney injury) Priority: Secondary Status: Deleted (4) Frequent falls Priority: Secondary Status: Deleted (5) DVT prophylaxis Priority: Secondary Status: Acute (6) COPD (chronic obstructive pulmonary disease) Priority: Secondary Status: Chronic (7) Severe uncontrolled diabetes mellitus Priority: Primary Status: Acute (8) Upper extremity myoclonus Priority: Secondary Status: Acute (9) Thrombocytopenia Priority: Secondary Status: Acute (10) Tobacco use Priority: Secondary Status: Chronic - Respiratory Orders None Smoking Cessation: Smoking cessation has been advised. For more information, call the [place] Tobacco Quit Line at 4-170-YOFV-NOW. - Diet/Nutrition Diet/Nutrition Orders: No Concentrated Sweets Diet/Nutrition: List: diabetic - Activity Activity Orders: Up ad geo - Services Needed Following services are medically necessary services: Physical Therapy, Occupational Therapy - Transfer Medications Prescriptions: Canagliflozin [Invokana] 100 mg PO DAILY #30 tablet Cyclobenzaprine [Flexeril] 5 mg PO TID #21 tablet Gabapentin [Neurontin] 300 mg PO TID #21 capsule Linagliptin [Tradjenta] 5 mg PO DAILY #30 tablet Home Medications: Aspirin Enteric Coated [Aspirin EC] 81 mg PO DAILY #0 04/24/15 [History] Cetirizine HCl 10 mg PO DAILY #0 04/25/15 [History] Pantoprazole Sodium [Protonix] 40 mg PO DAILY #0 04/25/15 [History] Albuterol Sulfate [Proair Hfa] 2 puff IH Q4H PRN 03/23/18 [History] Atorvastatin Calcium [Lipitor] 20 mg PO QPM 03/23/18 [History] Etodolac 300 mg PO BID 03/23/18 [History] Canagliflozin [Invokana] 100 mg PO DAILY #30 tablet 03/26/18 [Rx] Cyclobenzaprine [Flexeril] 5 mg PO TID #21 tablet 03/26/18 [Rx] Fluticasone Propionate Nasal [Flonase] 50 mcg NS DAILY PRN bottle 03/26/18 [Rx] Gabapentin [Neurontin] 300 mg PO TID #21 capsule 03/26/18 [Rx] GuaiFENesin ER [Mucinex] 1,200 mg PO Q12H tbbp.12hr 03/26/18 [Rx] Linagliptin [Tradjenta] 5 mg PO DAILY #30 tablet 03/26/18 [Rx] glipiZIDE [Glucotrol] 2.5 mg PO BIDWM tablet 03/26/18 [Rx] Allergies/Adverse Reactions: 3 Allergy/AdvReac Type Severity Reaction Status Date / Time No Known Allergies Allergy Verified 01/03/16 10:30 Certification: Further, I certify that my clinical findings support that this patient is homebound (i.e. absences from home require considerable and taxing effort and are for medical reasons or yarsani services or infrequently or short duration when for other reasons) because: Homebound Reason: Patient requires assistance of a person or device to safely leave home Attestation: My signature below is to certify that this patient is under my care and that I, or nurse practitioner, or a physician's media center assistant working with me, has a face-to -face encounter with this patient.
== END 2018-03-26 16:21 | disposition home or self-care (01) | DRG 638 ==
LOC: 2ANU 21:05 → EMEROOARM 21:05 → SUATTDRO 03-23 00:49 → 2ANU 03-23 01:22
PROVIDERS: ADMIT Internal Medicine; ATTEND Internal Medicine